=== PATIENT | female | born 1965 | race Caucasian/White ===

== ENCOUNTER 2021-12-23 11:27 | Outpatient (REF) | payer OTHER, SELFPAY ==
[2021-12-23 12:36] LABS: Creatinine Urine 166.16 mg/dL; Microalbum/Creatinine Ratio Ur 63.1 ug/mg cr
== END 2021-12-23 11:28 | disposition home or self-care (01) ==
LOC: HO.LNP 11:27
PROVIDERS: Visit Provider Hospitalist
DX: E11.65 Type 2 diabetes mellitus with hyperglycemia (principal)
CPT/HCPCS: 82043

== ENCOUNTER 2021-12-24 10:58 | Outpatient (REF) | payer OTHER, SELFPAY ==
[2021-12-24 14:07] LABS: Hematocrit 44.6 % (37.0-47.0); Hemoglobin 15.2 g/dl (12.0-16.0); Mean Corpuscular HGB Conc 34.1 g/dl (31.0-35.0); Mean Corpuscular Hemoglobin 30.5 pg (27.0-33.0); Mean Corpuscular Volume 89.4 fL (80.0-98.0); Mean Platelet Volume 11.8 fL (9.4-12.3); Platelet Count 194 X10*3/uL (160-400); Red Blood Count 4.99 X10*6/uL (4.20-5.50); Red Cell Distribution Width 12.7 % (11.0-16.0); White Blood Count 5.4 X10*3/uL (4.8-10.8)
[2021-12-24 14:18] LABS: Alanine Aminotransferase 60 U/L (0-31); Albumin Level 4.1 g/dL (3.5-5.0); Alkaline Phosphatase 82 U/L (39-117); Anion Gap 14 (12-20); Aspartate Amino Transferase 35 U/L (5-31); Bilirubin Total 1.2 mg/dL (0.0-1.0); Blood Urea Nitrogen 19 mg/dL (9-16); Calcium 9.1 mg/dL (8.4-10.2); Carbon Dioxide 27 mmol/L (22-29); Chloride 98 mmol/L (96-108); Cholesterol 245 mg/dL; Estimated Glomerular Filt Rate > 60; Glucose Fasting 327 mg/dL (60-99); HDL Cholesterol 39 mg/dL; LDL Cholesterol Calculated 160 mg/dl; Potassium 4.3 mmol/L (3.3-5.1); Sodium 135 mmol/L (135-145); Total Protein 6.7 g/dL (6.5-8.0); Triglycerides 230 mg/dL
[2021-12-24 14:40] LABS: TSH reflex Free T4 1.25 uIU/mL (0.32-4.0)
== END 2021-12-24 10:59 | disposition home or self-care (01) ==
LOC: HO.HMGCLDS 10:58
PROVIDERS: PCP Hospitalist; Visit Provider Hospitalist
DX: I10 Essential (primary) hypertension (principal); E11.65 Type 2 diabetes mellitus with hyperglycemia
CPT/HCPCS: 36415; 80053; 80061; 84443; 85027

== ENCOUNTER → 2022-01-19 10:01 | Outpatient (BNVA) | payer OTHER, SELFPAY | PROVIDERS: PCP Hospitalist; Visit Provider Registered Nurse Diabetes Educator | DX: E11.65 Type 2 diabetes mellitus with hyperglycemia (principal) | CPT/HCPCS: 99211 ==

== ENCOUNTER → 2022-02-19 14:28 | Outpatient (BNVA) | payer OTHER, SELFPAY | PROVIDERS: PCP Hospitalist; Visit Provider Registered Nurse Diabetes Educator | DX: E11.65 Type 2 diabetes mellitus with hyperglycemia (principal) | CPT/HCPCS: 99211 ==

== ENCOUNTER 2023-06-15 15:19 | Outpatient (AMB) | payer OTHER, SELFPAY ==
[2023-06-15 15:31] VITALS: BP 132/66; PULSE 108; RESP 13; O2SAT 98; BMI 32.8
--- NOTE | 2023-06-15 15:31 | MHC.PC.OV ---
Vital Signs 06/15/23 15:31 Height 5 ft 7 in Weight 209 lb 6 oz BMI 32.8 BP 132/66 Blood Pressure Location Lt brachial Position Sitting Respiration 13 Pulse 108 H Pulse Source Pulse Oximeter Pulse Oximetry (%) 98 Oxygen Delivery Method Room Air Intake Visit Reasons: LIBRADO from [facility] Intake Note: Patient is here for transfer of care. Patient would like to discuss depression. Survey Chief Required: No Accompanied by: Self / Same As Patient Allergies No Known Allergies Allergy (Verified 06/15/23 15:58) Medication List - Last Reconciled 06/15/23 by Roxanne Beckett [facility] blood sugar diagnostic ([employer] Ver[employer] test strips) As directed blood sugar daily and daily prn metformin ER 1,500 mg (2 x 750 mg) PO QPM 3 months sertraline 75 mg (1.5 x 50 mg) PO DAILY Tobacco use date assessed: 06/15/23 Dental Screening Dental Screen Date: 06/15/23 Did you have a dental visit in the last 12 months?: No Did you have a dental problem in the last 6 months where you did not have access to dental care?: No Was dental information given to patient?: Patient declined HPI HPI Comments History of Present Illness Details Jada 58-year-old female MDD, obesity, hypertension, diabetes type 2, microalbuminuria, elevated LFTs, hyperlipidemia, Herpes Health maintenance Colonoscopy 2017 Mammogram 11/07/2021 within normal limits Pap DEXA Diabetic eye exam Last set of labs 12/24/2021 practice representative recommended GLP 1 in the past never started Glucagon-like, peptide-1 (GLP-1) agonist or incretin mimetic: dulaglutide (Trulicity) exenatide (Byetta?[US]) and exenatide extended release (Bydureon BCise?[US]) liraglutide (Victoza;?with insulin degludec [Xultophy]) lixisenatide (Adlyxin?[US];?Adlyxine?[Brandi]; with insulin glargine [Soliqua]) semaglutide (Ozempic,?Rybelsus) Here today to est care. Admits to falling out of care generally speaking. MDD - was on sertraline while in the [facility]. On 75mg currently. Takes at HS. Struggling to get OOB, calling out of work. Low motivation. Not active w/ counselor. Was in past. + MARIANA. Passively suicidal. Grandchildren and Children are her reason to live. DM2: admits noncompliance. Admits poor diet. HgA1c 12.9% done in office today Hypertension not currently on any medications Microalbuminuria last urine done in 2021 Hyperlipidemia not yet on a statin Diabetic eye exam overdue. We will need a referral however we will place a future visit as the overwhelm her. [facility] Medical History (Updated 06/15/23 @ 16:37 by Roxanne Beckett, [facility]) No pertinent past medical history Surgical History (Updated 06/15/23 @ 15:48 by Tatianna Jang [facility]) No pertinent past surgical history Social History (Updated 06/15/23 @ 15:46 by Tatianna Jang [facility]) Household Members: Other Both parents involved: No Caregiver staying overnight: No Housing: Apartment Are you a primary health and social care teacher to a significant other at home: No Do you presently have visiting nurse or other home services: No 75 years or older and lives alone: No Alcohol intake: never Patient Tobacco Use Status: Never used Tobacco e-Cigarette/Vaping Use: Never Used Second Hand Smoke Exposure: No service: No Current occupational status: unemployed Current occupational exposures/hazards: No Sexual orientation: Unable to collect Gender identity: Unable to collect Cognitive needs: No Hearing needs: No Vision needs: Yes Questionnaire PHQ-9 Over the last 2 weeks, how often have you been bothered by any of the following problems? 1. Little interest or pleasure in doing things: more than half the days 2. Feeling down, depressed, or hopeless: not at all 3. Trouble falling or staying asleep, or sleeping too much: nearly every day 4. Feeling tired or having little energy: nearly every day 5. Poor appetite or overeating: not at all 6. Feeling bad about yourself - or that you are a failure or have let yourself or your family down: not at all 7. Trouble concentrating on things, such as reading the newspaper or watching television: not at all 8. Moving or speaking so slowly that other people could have noticed. Or the opposite - being so fidgety or restless that you have been moving around a lot more than usual: not at all 9. Thoughts that you would be better off or of hurting yourself in some way: not at all Total score: 8 Depression Screening Interpretation: Positive Depression Screening Follow-up: Existing condition and In treatment Depression Screening Done: Yes 17845 - PHQ-9 Billing: Yes Source: Developed by Drs. David Boykin, Nita Romero, Nicholas Schneider and colleagues, with an educational kim from [employer]. Thrive Questionnaire Date Thrive assessed: 06/15/23 I am a: Patient What is your living situation today?: I have a steady place to live Within the past 12 months, did the food you bought not last and you didn't have the money to get more?: Never true Within the past 12 months, did you worry whether your food would run out before you got money to buy more?: Never true Do you have trouble paying for medicines?: No Do you have trouble getting transportation to medical appointments?: No Do you have trouble paying your heating and electricity bill?: No Do you have trouble taking care of your child, family member or friend?: No Do you have trouble with day-to-day activities such as bathing, preparing meals, shopping, managing finances, etc.?: No Are you currently unemployed and looking for a job?: No Are you interested in more education?: No Please select the resources that you would like help with: None Currently or been in a relationship where the following occur: no concerns reported THRIVE Score: 0 AUDIT C Alcohol Use Questionnaire (AUDIT-C) 1. How often do you have a drink containing alcohol?: Never 2. How many drinks containing alcohol do you have on a typical day when you are drinking?: 1 or 2 3. How often do you have six or more drinks on one occasion?: Never Total Score: 0 Score Reviewed/Action Taken: Yes MARIANA-7 AMB Questionnaire MARIANA-7 Date MARIANA - 7 assessed: 06/15/23 Feeling nervous, anxious, or on edge: 0 = Not at all Not being able to stop or control worryin = Several days Worrying too much about different things: 1 = Several days Trouble relaxin = Not at all Being so restless that it is hard to sit still: 1 = Several days Becoming easily annoyed or irritable: 3 = Nearly every day Feeling afraid as if something awful might happen: 0 = Not at all Total MARIANA-7 score (0-4 normal; 5-9 mild; 10-14 moderate; 15-21 severe): 6 Source: Developed by Drs. David Boykin, Nita Romero, Nicholas Schneider and colleagues, with an educational kim from [employer]. MARIANA-7 Assessment Billing MARIANA-7 Assessment Tool: MARIANA-7 Assessment 73432 Review of Systems Const All systems reviewed & are unremarkable except as noted in HPI and below Physical exam (Primary Care) Vital Signs: Last Vital Signs Pulse 108 H 06/15/23 15:31 Resp 13 06/15/23 15:31 BP 132/66 06/15/23 15:31 Pulse Ox 98 06/15/23 15:31 Oxygen Delivery Method Room Air 06/15/23 15:31 BMI result Body Mass Index 32.8 BMI Assessment/Plan discussion: High BMI High, discussed plan: lifestyle and physical activity Tobacco/Smoking Status: Tobacco use Status Tobacco use date assessed 06/15/23 06/15/23 15:47 Patient Tobacco Use Status Never used Tobacco 06/15/23 15:46 e-Cigarette/Vaping Use Never Used 06/15/23 15:46 PHQ-9: PHQ-9 Score PHQ-9: Total score 8 06/15/23 15:47 Depression Screening Interpretation: Positive Depression Screening Follow-up: Existing condition and In treatment Thrive Assessment: Date of Thrive Assessment Date Thrive assessed 06/15/23 06/15/23 15:47 Currently or been in a relationship where the following occur: no concerns reported Const Other: Awake alert oriented pleasant Sclera is nonicteric bilat Mucous membranes moist No carotid bruit bilat Tachycardic regular rhythm Lung sounds clear to auscultation bilat, dim throughout Abdomen soft, obese, positive hepatomegaly, liver edge palpable No edema bilateral lower extremities, decreased pedal pulses bilat, abnormal monofilament testing bilat, abnormal vibratory sensation bilat, skin thickened callused to feet bilat, right great toenail positive on onychomycosis Mood and affect appropriate Results AMB Hemoglobin A1c AMB Hemoglobin A1c 12.9 % Last Edit by Tatianna Jang CMA on 06/15/23 15:51 Assessment and Plan Assessment & Plan (1) Diabetes mellitus type 2 with complications: Comment: HGB A1c 12.9% today The plan will be to get updated labs and adjust her treatments as necessary. At this time continue metformin ER 1500 mg in the evening Code(s): E11.8 - Type 2 diabetes mellitus with unspecified complications (2) Microalbuminuria due to type 2 diabetes mellitus: Comment: We will obtain updated microalbumin. Code(s): E11.29 - Type 2 diabetes mellitus with other diabetic kidney complication; R80.9 - Proteinuria, unspecified (3) Type 2 diabetes mellitus with morbid obesity: Comment: BMI 32.8, lifestyle modifications recommended Code(s): E11.69 - Type 2 diabetes mellitus with other specified complication; E66.01 - Morbid (severe) obesity due to excess calories (4) MDD (major depressive disorder), recurrent episode: Comment: Currently managed on sertraline 75 mg daily. Has been on this medication for several years. The plan will be to update labs and adjust medications to improve her depressive symptoms. Offered and declined counseling Code(s): F33.9 - Major depressive disorder, recurrent, unspecified Qualifiers: Major depression episode severity: moderate Qualified Code(s): F33.1 - Major depressive disorder, recurrent, moderate (5) Hyperlipidemia associated with type 2 diabetes mellitus: Comment: Ordered updated labs. We will review and start statin as appropriate if patient is agreeable Code(s): E11.69 - Type 2 diabetes mellitus with other specified complication; E78.5 - Hyperlipidemia, unspecified (6) Hypertension complicating diabetes: Comment: Not currently on any agents. We will discuss at future visits Code(s): E11.59 - Type 2 diabetes mellitus with other circulatory complications; I15.2 - Hypertension secondary to endocrine disorders (7) Neuropathy due to type 2 diabetes mellitus: Comment: Abnormal monofilament and vibratory sensations bilat noted today on exam. Diabetic foot exam performed. We will prescribe Lac-Hydrin cream b.i.d. to help with the thickened scaling skin. Diabetic foot education provided Code(s): E11.40 - Type 2 diabetes mellitus with diabetic neuropathy, unspecified (8) Diabetes type 2 with atherosclerosis of arteries of extremities: Comment: Based on physical exam. Lipid panel ordered. Monitor skin integrity Code(s): E11.51 - Type 2 diabetes mellitus with diabetic peripheral angiopathy without gangrene; I70.209 - Unspecified atherosclerosis of [place] arteries of extremities, unspecified extremity Plan This note is constructed using voice recognition software. While every effort has been made to ensure accuracy in director of trauma, still errors may have been included Sometimes, these errors may affect the content or meaning of the given sentence . Total time spent caring for the patient today was 60 minutes. This includes time spent before the visit reviewing the chart, time spent during the visit, and time spent after the visit on documentation Orders: Orders Comprehensive [place]. Panel Fast Today B00.9 - Herpesviral infection, unspecified, E11.29 - Type 2 diabetes mellitus with other diabetic kidney complication, E11.59 - Type 2 diabetes mellitus with other circulatory complications, E11.69 - Type 2 diabetes mellitus with other specified complication, E11.8 - Type 2 diabetes mellitus with unspecified complications, E66.01 - Morbid (severe) obesity due to excess calories, E78.5 - Hyperlipidemia, unspecified, F33.9 - Major depressive disorder, recurrent, unspecified, I15.2 - Hypertension secondary to endocrine disorders, R80.9 - Proteinuria, unspecified Microalbumin, Random (w Creat) Today B00.9 - Herpesviral infection, unspecified, E11.29 - Type 2 diabetes mellitus with other diabetic kidney complication, E11.59 - Type 2 diabetes mellitus with other circulatory complications, E11.69 - Type 2 diabetes mellitus with other specified complication, E11.8 - Type 2 diabetes mellitus with unspecified complications, E66.01 - Morbid (severe) obesity due to excess calories, E78.5 - Hyperlipidemia, unspecified, F33.9 - Major depressive disorder, recurrent, unspecified, I15.2 - Hypertension secondary to endocrine disorders, R80.9 - Proteinuria, unspecified AMB Diabetic Foot Exam Today E11.8 - Type 2 diabetes mellitus with unspecified complications AMB Hemoglobin A1c Today E11.9 - Type 2 diabetes mellitus without complications TSH reflex Free T4 Today B00.9 - Herpesviral infection, unspecified, E11.29 - Type 2 diabetes mellitus with other diabetic kidney complication, E11.59 - Type 2 diabetes mellitus with other circulatory complications, E11.69 - Type 2 diabetes mellitus with other specified complication, E11.8 - Type 2 diabetes mellitus with unspecified complications, E66.01 - Morbid (severe) obesity due to excess calories, E78.5 - Hyperlipidemia, unspecified, F33.9 - Major depressive disorder, recurrent, unspecified, I15.2 - Hypertension secondary to endocrine disorders, R80.9 - Proteinuria, unspecified Vitamin D 1,25 dihydroxy Today B00.9 - Herpesviral infection, unspecified, E11.29 - Type 2 diabetes mellitus with other diabetic kidney complication, E11.59 - Type 2 diabetes mellitus with other circulatory complications, E11.69 - Type 2 diabetes mellitus with other specified complication, E11.8 - Type 2 diabetes mellitus with unspecified complications, E66.01 - Morbid (severe) obesity due to excess calories, E78.5 - Hyperlipidemia, unspecified, F33.9 - Major depressive disorder, recurrent, unspecified, I15.2 - Hypertension secondary to endocrine disorders, R80.9 - Proteinuria, unspecified Lipid Panel Today B00.9 - Herpesviral infection, unspecified, E11.29 - Type 2 diabetes mellitus with other diabetic kidney complication, E11.59 - Type 2 diabetes mellitus with other circulatory complications, E11.69 - Type 2 diabetes mellitus with other specified complication, E11.8 - Type 2 diabetes mellitus with unspecified complications, E66.01 - Morbid (severe) obesity due to excess calories, E78.5 - Hyperlipidemia, unspecified, F33.9 - Major depressive disorder, recurrent, unspecified, I15.2 - Hypertension secondary to endocrine disorders, R80.9 - Proteinuria, unspecified Vitamin B12 and Folate Today B00.9 - Herpesviral infection, unspecified, E11.29 - Type 2 diabetes mellitus with other diabetic kidney complication, E11.59 - Type 2 diabetes mellitus with other circulatory complications, E11.69 - Type 2 diabetes mellitus with other specified complication, E11.8 - Type 2 diabetes mellitus with unspecified complications, E66.01 - Morbid (severe) obesity due to excess calories, E78.5 - Hyperlipidemia, unspecified, F33.9 - Major depressive disorder, recurrent, unspecified, I15.2 - Hypertension secondary to endocrine disorders, R80.9 - Proteinuria, unspecified Medications: New ammonium lactate 12% 1 appl topical BID 385 grams 5RF Coding Level of Care Code Est Pt Level 5 (19383) Diagnoses Diabetes mellitus type 2 with complications E11.8 Microalbuminuria due to type 2 diabetes mellitus E11.29; R80.9 Type 2 diabetes mellitus with morbid obesity E11.69; E66.01 Moderate episode of recurrent major depressive disorder F33.1 Major depression episode severity: moderate Hyperlipidemia associated with type 2 diabetes mellitus E11.69; E78.5 Hypertension complicating diabetes E11.59; I15.2 Neuropathy due to type 2 diabetes mellitus E11.40 Diabetes type 2 with atherosclerosis of arteries of extremities E11.51; I70.209 Additional Codes MARIANA-7 Assessment Billing - MARIANA-7 Assessment Tool: MARIANA-7 Assessment [id number] ([id number])
== END 2023-06-15 16:41 | disposition home or self-care (01) ==
PROVIDERS: PCP Nurse Practitioner Family; Visit Provider Nurse Practitioner Family
DX: E11.9 Type 2 diabetes mellitus without complications (principal)
CPT/HCPCS: 83036; 99215

== ENCOUNTER 2023-06-19 07:02 | Outpatient (REF) | payer OTHER, SELFPAY ==
[2023-06-19 11:40] LABS: Microalbum/Creatinine Ratio Ur 271.1 ug/mg cr (<30)
[2023-06-19 11:42] LABS: Alanine Aminotransferase 42 U/L (0-31); Albumin Level 4.3 g/dL (3.5-5.0); Alkaline Phosphatase 77 U/L (39-117); Anion Gap 14 (12-20); Aspartate Amino Transferase 31 U/L (5-31); Bilirubin Total 0.7 mg/dL (0.0-1.0); Blood Urea Nitrogen 16 mg/dL (9-16); Calcium 10.8 mg/dL (8.4-10.2); Carbon Dioxide 29 mmol/L (22-29); Chloride 96 mmol/L (96-108); Cholesterol 220 mg/dL (<200); Estimated Glomerular Filt Rate > 60; Glucose Fasting 335 mg/dL (60-99); HDL Cholesterol 48 mg/dL (>40); LDL Cholesterol Calculated 135 mg/dL (<100); Potassium 4.1 mmol/L (3.3-5.1); Sodium 135 mmol/L (135-145); Total Protein 7.2 g/dL (6.5-8.0); Triglycerides 189 mg/dL (<150)
[2023-06-19 11:56] LABS: Folate 10.4 ng/mL (> or = 4.0); Vitamin B12 891 pg/mL (200-900)
[2023-06-23 13:04] LABS: VITAMIN D (1,25 OH) D3 54 pg/mL; Vit D (1,25-Dihydroxy) Total 54 pg/mL (18-72); Vitamin D (1,25 OH) D2 <8 pg/mL
== END 2023-06-19 07:03 | disposition home or self-care (01) ==
LOC: HO.HMGCLDS 07:02
PROVIDERS: PCP Nurse Practitioner Family; Visit Provider Nurse Practitioner Family
DX: B00.9 Herpesviral infection, unspecified (principal); E11.29 Type 2 diabetes mellitus with other diabetic kidney complication; R80.9 Proteinuria, unspecified; E11.69 Type 2 diabetes mellitus with other specified complication; E66.01 Morbid (severe) obesity due to excess calories; F33.9 Major depressive disorder, recurrent, unspecified; E78.5 Hyperlipidemia, unspecified; E11.59 Type 2 diabetes mellitus with other circulatory complications; I15.2 Hypertension secondary to endocrine disorders
CPT/HCPCS: 36415; 80053; 80061; 82043; 82570; 82607; 82652; 82746; 84443

== ENCOUNTER 2023-09-11 07:10 | Outpatient (REF) | payer OTHER, SELFPAY ==
[2023-09-11 11:57] LABS: Alanine Aminotransferase 32 U/L (0-31); Albumin Level 4.3 g/dL (3.5-5.0); Alkaline Phosphatase 61 U/L (39-117); Anion Gap 15 (12-20); Aspartate Amino Transferase 28 U/L (5-31); Bilirubin Total 0.9 mg/dL (0.0-1.0); Blood Urea Nitrogen 18 mg/dL (9-16); Calcium 9.7 mg/dL (8.4-10.2); Carbon Dioxide 27 mmol/L (22-29); Chloride 102 mmol/L (96-108); Cholesterol 170 mg/dL (<200); Estimated Glomerular Filt Rate > 60; Glucose Fasting 185 mg/dL (60-99); HDL Cholesterol 52 mg/dL (>40); LDL Cholesterol Calculated 87 mg/dL (<100); Potassium 4.1 mmol/L (3.3-5.1); Sodium 140 mmol/L (135-145); Triglycerides 158 mg/dL (<150)
[2023-09-11 12:02] LABS: Creatinine Urine 51.33 mg/dL; Microalbum/Creatinine Ratio Ur 21.4 ug/mg cr (<30)
== END 2023-09-11 07:11 | disposition home or self-care (01) ==
LOC: HO.HMGCLDS 07:10
PROVIDERS: PCP Nurse Practitioner Family; Visit Provider Nurse Practitioner Family
DX: E11.29 Type 2 diabetes mellitus with other diabetic kidney complication (principal); E11.69 Type 2 diabetes mellitus with other specified complication; R80.9 Proteinuria, unspecified; E78.5 Hyperlipidemia, unspecified
CPT/HCPCS: 36415; 80053; 80061; 82043; 82570

== ENCOUNTER 2023-09-14 15:34 | Outpatient (AMB) | payer OTHER, SELFPAY ==
--- NOTE | 2023-09-14 15:37 | A.OFFPC_ITS ---
Vital Signs 09/14/23 15:43 Height 5 ft 7 in Weight 204 lb BMI 31.9 BP 136/78 Blood Pressure Location Rt brachial Position Sitting Pulse 84 Pulse Source Pulse Oximeter Pulse Oximetry (%) 98 Oxygen Delivery Method Room Air Intake Visit Reasons: f/u 45 min DM complex Allergies No Known Allergies Allergy (Verified 09/14/23 15:45) Medication List - Last Reconciled 09/14/23 by Roxanne Beckett, STUD MASTER/MISTRESS-BC ammonium lactate 12% 1 appl topical BID blood sugar diagnostic (Pact [employer] Verio test strips) As directed blood sugar daily and daily prn empagliflozin (Jardiance) 25 mg PO QAM metformin ER 1,500 mg (2 x 750 mg) PO QPM pravastatin 20 mg PO BEDTIME sertraline 75 mg (1.5 x 50 mg) PO DAILY Tobacco use date assessed: 06/15/23 Dental Screening Dental Screen Date: 06/15/23 HPI HPI Comments History of Present Illness Details 58-year-old female MDD, obesity, hyperte nsion, diabetes type 2, microalbuminuria, elevated LFTs, hyperlipidemia, Herpes Health maintenance Colonoscopy 2017 Mammogram 11/07/2021 within normal limits Pap DEXA Diabetic eye exam referred to [facility] Here today for routine follow-up of chronic conditions Labs from June 19 show normal electrolytes, normal BUN creatinine GFR, mildly elevated ALT 42, elevated triglycerides 189, cholesterol 220, LDL 135, HDL 48, normal B12, normal vitamin-D, normal thyroid, elevated microalbumin and microalbumin creatinine ratio. Urinary microalbumin is 215, ratio was 271.1 09/11/2023 normal electrolytes, renal fun ction, fasting glucose 185, improvement in ALT 32 (was 42), improvement and lipid profile total cholesterol went from 220 down to 170, triglycerides 189 down to 158, LDL 135 down to 87, HDL 48 up to 52, marked improvement in her urine microalbumin and creatinine ratio, ratio was 271.1 and it is now 21.4 Taking sertraline 100mg instead of 75mg over the last 2 weeks d/t increase in depressive sx. Feels better on this dose. Does not think she needs counseling at this time. Low energy. Hard time focusing. Low motivation. Using lachydrin as directed, occasional missed doses. Taking statin as directed, w/o side effects Wt down 5 lbs, no change in eating habits DM - no urogyn complaints. HgA1c 8.9% (was 12.9% 05/2023) taking all medications as directed. Plan: Increase metformin from 50 100 mg daily to 2000 mg daily. Continue Jardiance with the same dose. Add Wellbutrin XL 150 mg p.o. q.a.m. to the sertraline 100 mg p.o. daily. Refer for diabetic eye exam. Refer to podiatry for evaluation and treated with a corn on the left foot Return to office in 3-4 months with repeat labs [facility] Medical History (Updated 09/14/23 @ 17:16 by Roxanne Beckett [facility]) No pertinent past medical history Surgical History (Updated 06/15/23 @ 15:48 by Tatianna Jang [facility]) No pertinent past surgical history Social History (Updated 06/15/23 @ 15:46 by Tatianna Jang CMA) Household Members: Other Both parents involved: No Caregiver staying overnight: No Housing: Apartment Are you a primary administrator health care facility to a significant other at home: No Do you presently have visiting nurse or other home services: No 75 years or older and lives alone: No Alcohol intake: never Patient Tobacco Use Status: Never used Tobacco e-Cigarette/Vaping Use: Never Used Second Hand Smoke Exposure: No service: No Current occupational status: unemployed Current occupational exposures/hazards: No Sexual orientation: Unable to collect Gender identity: Unable to collect Cognitive needs: No Hearing needs: No Vision needs: Yes Questionnaire Thrive Questionnaire Date Thrive assessed: 06/15/23 MARIANA-7 AMB Questionnaire MARIANA-7 Date MARIANA - 7 assessed: 06/15/23 Source: Developed by Drs. David Boykin, Nita Romero, Nicholas Schneider and colleagues, with an educational kim from [employer]. Review of Systems Const All systems reviewed & are unremarkable except as noted in HPI and below Physical exam (Primary Care) BMI Assessment/Plan discussion: High BMI High, discussed plan: lifestyle and physical activity Tobacco/Smoking Status: Tobacco use Status Tobacco use date assessed 06/15/23 06/25/23 13:46 Patient Tobacco Use Status Never used Tobacco 06/25/23 13:46 e-Cigarette/Vaping Use Never Used 06/25/23 13:46 Thrive Assessment: Date of Thrive Assessment Date Thrive assessed 06/15/23 06/25/23 13:46 Const Other: Awake alert oriented pleasant Sclera is nonicteric bilat Mucous membranes moist RRR Lung sounds clear to auscultation bilat, dim throughout Abdomen soft, obese, positive hepatomegaly, liver edge palpable No edema bilateral lower extremities, decreased pedal pulses bilat, abnormal monofilament testing bilat, abnormal vibratory sensation bilat, skin thickened callused to feet bilat, right great toenail positive on onychomycosis, left 3rd toe positive corn, fragile skin that is intact on of left 4th toe due to pressure from the corn Mood and affect appropriate Results AMB Hemoglobin A1c AMB Hemoglobin A1c 8.9 % Last Edit by DARYL Bran on 09/14/23 16:0 4 Assessment and Plan Assessment & Plan (1) Diabetes type 2 with atherosclerosis of arteries of extremities: Comment: Based on physical exam. On statin. Monitor skin integrity Encouraged use of Lac-Hydrin Refer to podiatry Code(s): E11.51 - Type 2 diabetes mellitus with diabetic peripheral angiopathy without ga ngrene; I70.209 - Unspecified atherosclerosis of [place] arteries of extremities, unspecified extremity (2) Neuropathy due to type 2 diabetes mellitus: Comment: Abnormal monofilament and vibratory sensations bilat Noted a corn to the left 3rd toe which needs to be addressed this is causing pressure to the abutting toe. She has been referred to Podiatry for evaluation and treatment. Continue Lac-Hydrin cream b.i.d. to help with the thickened scaling skin. Diabetic foot education provided Code(s): E11.40 - Type 2 diabetes mellitus with diabetic neuropathy, unspecified (3) Microalbuminuria due to type 2 diabetes mellitus: Comment: Greatly improved with the use of Jardiance, continue repeat this in 3 months Code(s): E11.29 - Type 2 diabetes mellitus with other diabetic kidney complication; R80.9 - Proteinuria, unspecified (4) Type 2 diabetes mellitus with morbid obesity: Comment: BMI 32.0 lifestyle modifications recommended Code(s): E11.69 - Type 2 diabetes mellitus with other specified complication; E66.01 - Morbid (severe) obesity due to excess calories (5) MDD (major depressive disorder), recurrent episode: Comment: Self increase sertraline from 75 mg to 100 mg daily. [place] a positive effect. However continues to have some symptoms. The plan will be to add Wellbutrin XL 150 mg p.o. daily to her sertraline. Offered and declined counseling Code(s): F33.9 - Major depressive disorder, recurrent, unspecified Qualifiers: Major depression episode severity: moderate Qualified Code(s): F33.1 - Major depressive disorder, recurrent, moderate (6) Hyperlipidemia associated with type 2 diabetes mellitus: Comment: LDL goal is less than 70 Near goal on pravastatin 20 mg p.o. q.h.s. cont and repeat labs in 3 months Code(s): E11.69 - Type 2 diabetes mellitus with other specified complication; E78.5 - Hyperlipidemia, unspecified (7) Hypertension complicating diabetes: Comment: blood pressure stable without medications at this time we will continue to monitor Code(s): E11.59 - Type 2 diabetes mellitus with other circulatory complications; I15.2 - Hypertension secondary to endocrine disorders (8) Diabetes mellitus type 2 with complications: Comment: HGB A1c 8.9% Increase metformin ER 2000 mg q.h.s. and continue Jardiance 25 mg p.o. q.a.m. Refer for diabetic eye exam We will repeat A1c in 3 months Code(s): E11.8 - Type 2 diabetes mellitus with unspecified complications Plan This note is constructed using voice recognition software. While every effort has been made to ensure accuracy in customs and border protection inspector, still errors may have been included Sometimes, these errors may affect the content or meaning of the given sentence . Total time spent caring for the patient today was 50 minutes. This includes time spent before the visit reviewing the chart, time spent during the visit, and time spent after the visit on documentation Orders: Orders AMB Hemoglobin A1c Today E11.51 - Type 2 diabetes mellitus with diabetic peripheral angiopathy without gangrene, E11.8 - Type 2 diabetes mellitus with unspecified complications, I70.209 - Unspecified atherosclerosis of [place] arteries of extremities, unspecified extremity Hemoglobin A1c 11/25/23 E11.29 - Type 2 diabetes mellitus with other diabetic kidney complication, E11.51 - Type 2 diabetes mellitus with diabetic peripheral angiopathy without gangrene, E11.59 - Type 2 diabetes mellitus with other circulatory complications, E11.69 - Type 2 diabetes mellitus with other specified complication, E11.8 - Type 2 diabetes mellitus with unspecified complications, E66.01 - Morbid (severe) obesity due to excess calories, E78.5 - Hyperlipidemia, unspecified, I15.2 - Hypertension secondary to endocrine disorders, I70.209 - Unspecified atherosclerosis of [place] arteries of extremities, unspecified extremity, R80.9 - Proteinuria, unspecified Comprehensive [place]. Panel Fast 11/25/23 E11.29 - Type 2 diabetes mellitus with other diabetic kidney complication, E11.51 - Type 2 diabetes mellitus with diabetic peripheral angiopathy without gangrene, E11.59 - Type 2 diabetes mellitus with other circulatory complications, E11.69 - Type 2 diabetes mellitus with other specified complication, E11.8 - Type 2 diabetes mellitus with unspecified complications, E66.01 - Morbid (severe) obesity due to excess calories, E78.5 - Hyperlipidemia, unspecified, I15.2 - Hypertension secondary to endocrine disorders, I70.209 - Unspecified atherosclerosis of [place] arteries of extremities, unspecified extremity, R80.9 - Proteinuria, unspecified Lipid Panel 11/25/23 E11.29 - Type 2 diabetes mellitus with other diabetic k [place] complication, E11.51 - Type 2 diabetes mellitus with diabetic peripheral angiopathy without gangrene, E11.59 - Type 2 diabetes mellitus with other circulatory complications, E11.69 - Type 2 diabetes mellitus with other specified complication, E11.8 - Type 2 diabetes mellitus with unspecified complications, E66.01 - Morbid (severe) obesity due to excess calories, E78.5 - Hyperlipidemia, unspecified, I15.2 - Hypertension secondary to endocrine disorders, I70.209 - Unspecified atherosclerosis of [place] arteries of extremities, unspecified extremity, R80.9 - Proteinuria, unspecified Microalbumin, Random (w Creat) 11/25/23 E11.29 - Type 2 diabetes mellitus with other diabetic kidney complication, E11.51 - Type 2 diabetes mellitus with diabetic peripheral angiopathy without gangrene, E11.59 - Type 2 diabetes mellitus with other circulatory complications, E11.69 - Type 2 diabetes mellitus with other specified complication, E11.8 - Type 2 diabetes mellitus with unspecified complications, E66.01 - Morbid (severe) obesity due to excess calories, E78.5 - Hyperlipidemia, unspecified, I15.2 - Hypertension secondary to endocrine disorders, I70.209 - Unspecified atherosclerosis of [place] arteries of extremities, unspecified extremity, R80.9 - Proteinuria, unspecified Vitamin B12 11/25/23 E11.29 - Type 2 diabetes mellitus with other diabetic kidney complication, E11.51 - Type 2 diabetes mellitus with diabetic peripheral angiopathy without gangrene, E11.59 - Type 2 diabetes mellitus with other circulatory complications, E11.69 - Type 2 diabetes mellitus with other specified complication, E11.8 - Type 2 diabetes mellitus with unspecified complications, E66.01 - Morbid (severe) obesity due to excess calories, E78.5 - Hyperlipidemia, unspecified, I15.2 - Hypertension secondary to endocrine disorders, I70.209 - Unspecified atherosclerosis of [place] arteries of extremities, unspecified extremity, R80.9 - Proteinuria, unspecified Referrals Ophthalmology Referral E11.8 - Type 2 diabetes mellitus with unspecified complications Podiatry Referral E11.40 - Type 2 diabetes mellitus with diabetic neuropathy, unspecified, L84 - Corns and callosities Medications: New sertraline 100 mg PO DAILY 90 tabs 1RF metformin ER 2,000 mg (2 x 1,000 mg) PO QPM 180 tabs 1RF bupropion HCl XL (Wellbutrin XL) 150 mg PO QAM 90 tabs 0RF Refilled pravastatin 20 mg PO BEDTIME 90 tabs 1RF empagliflozin (Jardiance) 25 mg PO QAM 90 tabs 1RF Discontinued sertraline Discontinued Reason: Doctor's Order 75 mg (1.5 x 50 mg) PO DAILY 135 tabs 3RF F32.9 - Major depressive disorder, single episode, unspecified metformin ER Discontinued Reason: Doctor's Order 1,500 mg (2 x 750 mg) PO QPM 180 tabs 0RF E11.65 - Type 2 diabetes mellitus with hyperglycemia Patient Instructions: Return to the office in 3-4 months with repeat labs done 1 week before. Make a diabetic eye exam as well as a Podiatry exam return to the office sooner if needed. Coding Level of Care Code Est Pt Level 5 (22683) Complex EM visit Add On G2211 Diagnoses Diabetes type 2 with atherosclerosis of arteries of extremities E11.51; I70.209 Neuropathy due to type 2 diabetes mellitus E11.40 Microalbuminuria due to type 2 diabetes mellitus E11.29; R80.9 Type 2 diabetes mellitus with morbid obesity E11.69; E66.01 Moderate episode of recurrent major depressive disorder F33.1 Major depression episode severity: moderate Hyperlipidemia associated with type 2 diabetes mellitus E11.69; E78.5 Hypertension complicating diabetes E11.59; I15.2 Diabetes mellitus type 2 with complications E11.8
[2023-09-14 15:43] VITALS: BP 136/78; PULSE 84; O2SAT 98; BMI 31.9
== END 2023-09-14 16:32 | disposition home or self-care (01) ==
PROVIDERS: PCP Nurse Practitioner Family; Visit Provider Nurse Practitioner Family
DX: E11.51 Type 2 diabetes mellitus with diabetic peripheral angiopathy without gangrene (principal); I70.209 Unspecified atherosclerosis of native arteries of extremities, unspecified extremity; E11.40 Type 2 diabetes mellitus with diabetic neuropathy, unspecified; E11.29 Type 2 diabetes mellitus with other diabetic kidney complication; E11.69 Type 2 diabetes mellitus with other specified complication; E66.01 Morbid (severe) obesity due to excess calories; E11.59 Type 2 diabetes mellitus with other circulatory complications; F33.1 Major depressive disorder, recurrent, moderate; R80.9 Proteinuria, unspecified; E78.5 Hyperlipidemia, unspecified; I15.2 Hypertension secondary to endocrine disorders
CPT/HCPCS: 83036; 99215; G2211

== ENCOUNTER 2023-12-21 07:38 | Outpatient (REF) | payer OTHER, SELFPAY ==
[2023-12-21 11:06] LABS: Alanine Aminotransferase 42 U/L (0-31); Albumin Level 4.5 g/dL (3.5-5.0); Alkaline Phosphatase 72 U/L (39-117); Anion Gap 16 (12-20); Aspartate Amino Transferase 33 U/L (5-31); Bilirubin Total 0.9 mg/dL (0.0-1.0); Blood Urea Nitrogen 26 mg/dL (9-16); Calcium 9.8 mg/dL (8.4-10.2); Carbon Dioxide 27 mmol/L (22-29); Chloride 102 mmol/L (96-108); Cholesterol 202 mg/dL (<200); Estimated Glomerular Filt Rate > 60; Glucose Fasting 268 mg/dL (60-99); HDL Cholesterol 45 mg/dL (>40); LDL Cholesterol Calculated 119 mg/dL (<100); Potassium 4.5 mmol/L (3.3-5.1); Sodium 140 mmol/L (135-145); Total Protein 7.2 g/dL (6.5-8.0); Triglycerides 194 mg/dL (<150)
[2023-12-21 11:09] LABS: Estimated Average Glucose 229 mg/dL; Hemoglobin A1c % 9.6 % (<6.0)
[2023-12-21 11:13] LABS: Vitamin B12 575 pg/mL (200-900)
[2023-12-21 11:20] LABS: Creatinine Urine 53.65 mg/dL; Microalbum/Creatinine Ratio Ur 134.2 ug/mg cr (<30)
== END 2023-12-21 07:39 | disposition home or self-care (01) ==
LOC: HO.HMGCLDS 07:38
PROVIDERS: PCP Nurse Practitioner Family; Visit Provider Nurse Practitioner Family
DX: E11.51 Type 2 diabetes mellitus with diabetic peripheral angiopathy without gangrene (principal); I70.209 Unspecified atherosclerosis of native arteries of extremities, unspecified extremity; E11.29 Type 2 diabetes mellitus with other diabetic kidney complication; R80.9 Proteinuria, unspecified; E66.01 Morbid (severe) obesity due to excess calories; E78.5 Hyperlipidemia, unspecified; I15.2 Hypertension secondary to endocrine disorders
CPT/HCPCS: 36415; 80053; 80061; 82043; 82570; 82607; 83036

== ENCOUNTER 2023-12-22 15:26 | Outpatient (AMB) | payer OTHER, SELFPAY ==
--- NOTE | 2023-12-22 15:36 | MHC.PC.OV ---
Vital Signs 12/22/23 15:38 Height 5 ft 7 in Weight 208 lb BMI 32.6 BP 120/80 Blood Pressure Location Rt brachial Position Sitting Respiration 16 Pulse 104 H Pulse Source Pulse Oximeter Temp 96.4 F L Temp Source Tympanic Pulse Oximetry (%) 97 Oxygen Delivery Method Room Air Intake Visit Reasons: 30 min fu chronic dz, labs Intake Note: follow up on labs Allergies bupropion [From Wellbutrin SR] Adverse Reaction (Mild, Verified 12/22/23 16:03) Insomnia Medication List - Last Reconciled 12/22/23 by Roxanne Beckett, SEMICONDUCTOR PROCESSOR- ammonium lactate 12% 1 appl topical BID empagliflozin (Jardiance) 25 mg PO QAM metformin ER 2,000 mg (4 x 500 mg) PO QPM 90 days pravastatin 20 mg PO BEDTIME sertraline 100 mg PO DAILY Tobacco use date assessed: 06/15/23 Dental Screening Dental Screen Date: 06/15/23 HPI HPI Comments History of Present Illness Details 58-year-old female MDD, obesity, hypertension, diabetes type 2, microalbuminuria, elevated LFTs, hyperlipidemia, Herpes Here today for routine follow up of chronic conditions. Was without Jardiance for 1 month d/t insurance issues that have been resolved. Just got RX 3 days ago. She has experienced hyperglycemia sx of increased thirst, fatigue feeling run down. This has improved since she restarted the Jardiance. Taking Metformin 2000mg as directed. Stopped Wellbutrin as she was having insomnia, nervous energy, heart racing. Took this for 3 weeks and then stopped. Did restart and only lasted 2 days and had return of side effects. Cont on sertraline 100mg. Admits periods of depression and some anxiety. Denies SI/HI. Cont to decline counseling Did see podiatry for treatment of corns bilat feet. Has not used lachydrin since last visit. The following labs were discuss with her today: Labs from 12/21/2023 show normal electrolytes, BUN 26, creatinine 0.86, fasting glucose 268, hemoglobin A1c 9.6%, elevated liver enzymes AST 33, ALT 42, total cholesterol 202, LDL 119, triglycerides 194, HDL 45, normal B12, positive urine microalbumin creatinine ratio 134.2 Exam: Awake alert oriented pleasant Sclera is nonicteric bilat Mucous membranes moist RRR Lung sounds clear to auscultation bilat, dim throughout Abdomen soft, obese, positive hepatomegaly, liver edge palpable No edema bilateral lower extremities, decreased pedal pulses bilat, abnormal monofilament testing bilat, abnormal vibratory sensation bilat, skin thickened callused to feet bilat, scaly, right great toenail onychomycosis, Mood and affect appropriate Plan: Cont Metformin and Jardiance @ current dose Schedule Diabetic eye exam and Mammogram; consider fu w/ podiatry Increase sertraline from 100mg to 125mg daily to help MDD and MARIANA. Cont lac hydrin to bilat feet No change in statin depsite above labs as this was done during a time you were without your Jardiance which could be playing a part (+4 wt gain). RTO 3 months with labs done 1 week before, sooner PRN This note is constructed using voice recognition software. While every effort has been made to ensure accuracy in oil well service operator, still errors may have been included Sometimes, these errors may affect the content or meaning of the given sentence . Total time spent caring for the patient today was 42 minutes. This includes time spent before the visit reviewing the chart, time spent during the visit, and time spent after the visit on documentation [facility] Medical History (Updated 12/23/23 @ 08:10 by AGUSTINA Bazzi) No pertinent past medical history Surgical History (Updated 06/15/23 @ 15:48 by Tatianna Jang CMA) No pertinent past surgical history Social History (Updated 06/15/23 @ 15:46 by Tatianna Jang CMA) Household Members: Other Both parents involved: No Caregiver staying overnight: No Housing: Apartment Are you a primary anesthesiologist and critical care to a significant other at home: No Do you presently have visiting nurse or other home services: No 75 years or older and lives alone: No Alcohol intake: never Patient Tobacco Use Status: Never used Tobacco e-Cigarette/Vaping Use: Never Used Second Hand Smoke Exposure: No service: No Current occupational status: unemployed Current occupational exposures/hazards: No Sexual orientation: Unable to collect Gender identity: Unable to collect Cognitive needs: No Hearing needs: No Vision needs: Yes Questionnaire Thrive Questionnaire Date Thrive assessed: 06/15/23 MARIANA-7 AMB Questionnaire MARIANA-7 Date MARIANA - 7 assessed: 06/15/23 Source: Developed by Drs. David Boykin, Nita Romero, Nicholas Schneider and colleagues, with an educational kim from [employer]. Physical exam (Primary Care) Vital Signs: Last Vital Signs Temp 96.4 F L 12/22/23 15:38 Pulse 104 H 12/22/23 15:38 Resp 16 12/22/23 15:38 BP 120/80 12/22/23 15:38 Pulse Ox 97 12/22/23 15:38 Oxygen Delivery Method Room Air 12/22/23 15:38 BMI result Body Mass Index 32.6 Tobacco/Smoking Status: Tobacco use Status Tobacco use date assessed 06/15/23 12/22/23 15:36 Patient Tobacco Use Status Never used Tobacco 12/22/23 15:36 e-Cigarette/Vaping Use Never Used 12/22/23 15:36 Thrive Assessment: Date of Thrive Assessment Date Thrive assessed 06/15/23 12/22/23 15:36 Assessment and Plan Assessment & Plan (1) Diabetes mellitus type 2 with complications: Code(s): E11.8 - Type 2 diabetes mellitus with unspecified complications (2) Hyperlipidemia associated with type 2 diabetes mellitus: Comment: LDL goal is less than 70 Near goal on pravastatin 20 mg p.o. q.h.s. cont and repeat labs in 3 months Code(s): E11.69 - Type 2 diabetes mellitus with other specified complication; E78.5 - Hyperlipidemia, unspecified (3) Type 2 diabetes mellitus with morbid obesity: Comment: BMI 32.0 lifestyle modifications recommended Code(s): E11.69 - Type 2 diabetes mellitus with other specified complication; E66.01 - Morbid (severe) obesity due to excess calories (4) Microalbuminuria due to type 2 diabetes mellitus: Comment: Greatly improved with the use of Jardiance, continue repeat this in 3 months Code(s): E11.29 - Type 2 diabetes mellitus with other diabetic kidney complication; R80.9 - Proteinuria, unspecified (5) Diabetes type 2 with atherosclerosis of arteries of extremities: Comment: Based on physical exam. On statin. Monitor skin integrity Encouraged use of Lac-Hydrin Refer to podiatry Code(s): E11.51 - Type 2 diabetes mellitus with diabetic peripheral angiopathy without gangrene; I70.209 - Unspecified atherosclerosis of [place] arteries of extremities, unspecified extremity (6) MDD (major depressive disorder), recurrent episode: Code(s): F33.9 - Major depressive disorder, recurrent, unspecified Qualifiers: Major depression episode severity: moderate Qualified Code(s): F33.1 - Major depressive disorder, recurrent, moderate (7) Hypertension complicating diabetes: Comment: blood pressure stable without medications at this time we will continue to monitor Code(s): E11.59 - Type 2 diabetes mellitus with other circulatory complications; I15.2 - Hypertension secondary to endocrine disorders Orders: Orders Lipid Panel 02/25/24 E11.29 - Type 2 diabetes mellitus with other diabetic kidney complication, E11.51 - Type 2 diabetes mellitus with diabetic peripheral angiopathy without gangrene, E11.69 - Type 2 diabetes mellitus with other specified complication, E11.8 - Type 2 diabetes mellitus with unspecified complications, E66.01 - Morbid (severe) obesity due to excess calories, E78.5 - Hyperlipidemia, unspecified, I70.209 - Unspecified atherosclerosis of [place] arteries of extremities, unspecified extremity, R80.9 - Proteinuria, unspecified Hemoglobin A1c 02/25/24 E11.29 - Type 2 diabetes mellitus with other diabetic kidney complication, E11.51 - Type 2 diabetes mellitus with diabetic peripheral angiopathy without gangrene, E11.69 - Type 2 diabetes mellitus with other specified complication, E11.8 - Type 2 diabetes mellitus with unspecified complications, E66.01 - Morbid (severe) obesity due to excess calories, E78.5 - Hyperlipidemia, unspecified, I70.209 - Unspecified atherosclerosis of [place] arteries of extremities, unspecified extremity, R80.9 - Proteinuria, unspecified Comprehensive [place]. Panel Fast 02/25/24 E11.29 - Type 2 diabetes mellitus with other diabetic kidney complication, E11.51 - Type 2 diabetes mellitus with diabetic peripheral angiopathy without gangrene, E11.69 - Type 2 diabetes mellitus with other specified complication, E11.8 - Type 2 diabetes mellitus with unspecified complications, E66.01 - Morbid (severe) obesity due to excess calories, E78.5 - Hyperlipidemia, unspecified, I70.209 - Unspecified atherosclerosis of [place] arteries of extremities, unspecified extremity, R80.9 - Proteinuria, unspecified Microalbumin, Random (w Creat) 02/25/24 E11.29 - Type 2 diabetes mellitus with other diabetic kidney complication, E11.51 - Type 2 diabetes mellitus with diabetic peripheral angiopathy without gangrene, E11.69 - Type 2 diabetes mellitus with other specified complication, E11.8 - Type 2 diabetes mellitus with unspecified complications, E66.01 - Morbid (severe) obesity due to excess calories, E78.5 - Hyperlipidemia, unspecified, I70.209 - Unspecified atherosclerosis of [place] arteries of extremities, unspecified extremity, R80.9 - Proteinuria, unspecified Medications: New sertraline 25 mg PO DAILY 90 tabs 1RF Refilled metformin ER 2,000 mg (4 x 500 mg) PO QPM 90 days 360 tabs 1RF empagliflozin (Jardiance) 25 mg PO QAM 90 tabs 1RF Coding Level of Care Code Est Pt Level 5 (31652) Diagnoses Diabetes mellitus type 2 with complications E11.8 Hyperlipidemia associated with type 2 diabetes mellitus E11.69; E78.5 Type 2 diabetes mellitus with morbid obesity E11.69; E66.01 Microalbuminuria due to type 2 diabetes mellitus E11.29; R80.9 Diabetes type 2 with atherosclerosis of arteries of extremities E11.51; I70.209 Moderate episode of recurrent major depressive disorder F33.1 Major depression episode severity: moderate Hypertension complicating diabetes E11.59; I15.2
[2023-12-22 15:38] VITALS: BP 120/80; PULSE 104; RESP 16; TEMP 35.8; O2SAT 97; BMI 32.6
== END 2023-12-22 16:26 | disposition home or self-care (01) ==
PROVIDERS: PCP Nurse Practitioner Family; Visit Provider Nurse Practitioner Family
DX: E11.69 Type 2 diabetes mellitus with other specified complication (principal); E66.01 Morbid (severe) obesity due to excess calories; E11.29 Type 2 diabetes mellitus with other diabetic kidney complication; E11.51 Type 2 diabetes mellitus with diabetic peripheral angiopathy without gangrene; I70.209 Unspecified atherosclerosis of native arteries of extremities, unspecified extremity; F33.1 Major depressive disorder, recurrent, moderate; E11.59 Type 2 diabetes mellitus with other circulatory complications; E78.5 Hyperlipidemia, unspecified; R80.9 Proteinuria, unspecified; I15.2 Hypertension secondary to endocrine disorders
CPT/HCPCS: 99215

== ENCOUNTER 2024-03-13 08:04 | Outpatient (REF) | payer OTHER, SELFPAY ==
[2024-03-13 10:23] LABS: Estimated Average Glucose 209 mg/dL; Hemoglobin A1C 301.0798 umol/L; Hemoglobin A1c % 8.9 % (<6.0); Total Hemoglobin (HGBA1C) 4073.7212 umol/L
[2024-03-13 10:51] LABS: Alanine Aminotransferase 47 U/L (0-31); Albumin Level 4.4 g/dL (3.5-5.0); Alkaline Phosphatase 69 U/L (39-117); Anion Gap 12 (12-20); Aspartate Amino Transferase 35 U/L (5-31); Bilirubin Total 0.6 mg/dL (0.0-1.0); Blood Urea Nitrogen 19 mg/dL (9-16); Calcium 9.6 mg/dL (8.4-10.2); Carbon Dioxide 29 mmol/L (22-29); Chloride 104 mmol/L (96-108); Cholesterol 216 mg/dL (<200); Estimated Glomerular Filt Rate > 60; Glucose Fasting 240 mg/dL (60-99); HDL Cholesterol 50 mg/dL (>40); LDL Cholesterol Calculated 122 mg/dL (<100); Potassium 4.2 mmol/L (3.3-5.1); Sodium 141 mmol/L (135-145); Total Protein 7.1 g/dL (6.5-8.0); Triglycerides 224 mg/dL (<150)
[2024-03-13 11:06] LABS: Microalbum/Creatinine Ratio Ur 44.8 ug/mg cr (<30)
== END 2024-03-13 08:05 | disposition home or self-care (01) ==
LOC: HO.HMGCLDS 08:04
PROVIDERS: PCP Nurse Practitioner Family; Visit Provider Nurse Practitioner Family
DX: E11.51 Type 2 diabetes mellitus with diabetic peripheral angiopathy without gangrene (principal); I70.209 Unspecified atherosclerosis of native arteries of extremities, unspecified extremity; E11.29 Type 2 diabetes mellitus with other diabetic kidney complication; R80.9 Proteinuria, unspecified; E11.69 Type 2 diabetes mellitus with other specified complication; E66.01 Morbid (severe) obesity due to excess calories; E78.5 Hyperlipidemia, unspecified; E11.8 Type 2 diabetes mellitus with unspecified complications
CPT/HCPCS: 36415; 80053; 80061; 82043; 82570; 83036

== ENCOUNTER 2024-03-14 15:25 | Outpatient (AMB) | payer OTHER, SELFPAY ==
--- NOTE | 2024-03-14 15:26 | A.OFFPC_ITS ---
Vital Signs 03/14/24 15:31 Height 5 ft 7 in Weight 205 lb BMI 32.1 BP 130/60 Blood Pressure Location Lt brachial Position Sitting Respiration 13 Pulse 91 Pulse Source Pulse Oximeter Pulse Oximetry (%) 99 Oxygen Delivery Method Room Air Intake Visit Reasons: 3 mo 30 min fu complex conditions Intake Note: follow up Wardrobe Mistress Required: No Allergies bupropion [From Wellbutrin SR] Adverse Reaction (Mild, Verified 03/14/24 15:39) Insomnia Medication List - Last Reconciled 03/14/24 by BING Bazzi- ammonium lactate 12% 1 appl topical BID empagliflozin (Jardiance) 25 mg PO QAM metformin ER 2,000 mg (4 x 500 mg) PO QPM 90 days pravastatin 20 mg PO BEDTIME sertraline 100 mg PO DAILY sertraline 25 mg PO DAILY Tobacco use date assessed: 06/15/23 Dental Screening Dental Screen Date: 06/15/23 HPI HPI Comments History of Present Illness Details 58-year-old female MDD, obesity, hyperte nsion, diabetes type 2, microalbuminuria, elevated LFTs, hyperlipidemia, Herpes The patient is a 58-year-old female presenting with Major Depressive Disorder. The patient reports long-standing depression, which has been resistant to current treatment measures. The dose of sertraline was recently increased from 100 mg to 125 mg daily in an attempt to manage symptoms. The patient noted increased irritability when taking 125 mg at night and subsequently experimented with dosing 100 mg at night and 25 mg in the morning, which provided some relief without clear improvement in depressive symptoms. The patient has a history of a poor response to bupropion and opts not to switch antidepressants, citing concerns about medication changes worsening her mood. 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 Type 2 Diabetes Mellitus and its management were also discussed. The patient has been taking Jardiance and metformin, experiencing some difficulty due to pharmacy insurance issues, which have since been resolved. Despite resuming Jardiance, there is only a small improvement in A1c levels?from 9.6% to 8.9%. The patient is already on the maximum doses of Jardiance and metformin, and an additional agent for diabetes management was considered. The patient engages minimally in lifestyle modifications and reports occasional dietary indiscretions, notably consuming sweets. Mammo - has not scheduled yet; Has the order. 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 - Substance Use: No substance use was di scussed. - Diet: Reports consumption of simple hook gars and packaged foods. - Exercise and Activity Level: Not discu ssed. - Family Situation: Unknown. Review of Systems - Psychiatric: Reports irritability when dosing sertraline differently. - Musculoskeletal: Denies joint or muscl e pain. - Neurological: Denies headaches or dottie ting. - Dermatological: Reports a non-healing diabetic foot ulcer. Physical Exam - Psychiatric- Cooperative, alert, and o riented. - Cardiovascular- Blood pressure 130/60 mmHg. - Respiratory- Clear to auscultation elle aterally, dim throughout - Gastrointestinal- No tenderness upon a bdominal palpation, slight discomfort over the ribs L, positive hepatomegaly, liver edge palpable - Neurological- Cranial nerves intact. B ilateral lower extremity checked for swelling; no significant edema noted. - Dermatological- Diabetic foot examined ; skin showed no significant deterioration, No edema bilateral lower extremities, decreased pedal pulses bilat, abnormal monofilament testing bilat, abnormal vibratory sensation bilat, skin thickened callused to feet bilat, scaly, right great toenail onychomycosis Results - Labs: Fasting glucose at 240 mg/dL, A1 c at 8.9%, elevated liver enzymes, elevated cholesterol levels. Plan - Major Depressive Disorder: Consult [facility] psychiatric nurse practitioner for potential SNRI initiation or adjunct atypical antidepressant. Continue current sertraline dosing. - Type 2 Diabetes Mellitus: Introduce gl yburide 5 mg once daily for better glycemic control. Monitor for hypoglycemic episodes. - Hyperlipidemia: Increase pravastatin t o 40 mg for better cholesterol manag ement. - Diabetic Foot: Encourage the use of pr escribed topical treatment and monitor for any changes. - Hypertension: Continue current managem ent; blood pressure is well-controlled. - Preventive Measures: Referral to [facility], eye exam for diabetic retinopathy, and mammogram scheduling. Patient was informed and verbally consented to the use of an ambient scribe clinic note documentation during this visit. Discussion Notes During this visit, I discussed with the patient the persistence of her depressive symptoms despite dose adjustments of sertraline. The consideration of transitioning to an SNRI or adding atypical antidepressants needs further consultation with our psychiatric nurse practitioner. The patient expressed valid concerns regarding the potential exacerbation of symptoms with medication changes, which I acknowledged. The psychological impact of diabetes management and its implications on her mental health was addressed. I recommended the introduction of glyburide to better control blood sugar levels anticipated to reduce her A1c to target levels. We discussed potential hypoglycemic episodes as a known side effect and the appropriate corrective actions using the rule of 15. In addressing hyperlipidemia, increasing pravastatin was deemed necessary due to suboptimal cholesterol levels. We also planned for preventive care, including diabetic eye examinations and mammography, emphasizing the importance of compliance with health maintenance measures. I highlighted the benefits of structured therapy, especially during medication transitions, and encouraged utilizing the employer-provided therapy sessions. Follow-up and monitoring of psychiatric and medical conditions were discussed. Patient Instructions - Continue sertraline at current dosing until advised otherwise. - Start glyburide 5 mg daily. Be vigilan t for signs of hypoglycemia. - Increase pravastatin to 40 mg as presc ribed. - Apply diabetic foot cream daily and mo nitor for any changes. - Schedule and attend mammogram and diab etic eye exam as planned. - Explore therapy sessions offered throu gh the workplace and pursue [facility] for additional support. - Schedule and attend dental check-up [facility] comprehensive care. - Monitor blood pressure and blood sugar levels regularly. - Return for repeat labs in three months with fasting blood sample. - Contact our office with any medication side effects or health changes. at 1700 sent clinical message to ADRIAN Latham w/ request for e-consult. Will f/u via portal w/ patient once recs have been made Total time spent caring for the patient today was 45 minutes. This includes time spent before the visit reviewing the chart, time spent during the visit, and time spent after the visit on documentation [facility] Medical History (Updated 03/14/24 @ 17:01 by AGUSTINA Bazzi) No pertinent past medical history Surgical History (Updated 06/15/23 @ 15:48 by Tatianna Jang CMA) No pertinent past surgical history Social History (Updated 06/15/23 @ 15:46 by Tatianna Jang CMA) Household Members: Other Both parents involved: No Caregiver staying overnight: No Housing: Apartment Are you a primary certified caregiver to a significant other at home: No Do you presently have visiting nurse or other home services: No 75 years or older and lives alone: No Alcohol intake: never Patient Tobacco Use Status: Never used Tobacco e-Cigarette/Vaping Use: Never Used Second Hand Smoke Exposure: No service: No Current occupational status: unemployed Current occupational exposures/hazards: No Sexual orientation: Unable to collect Gender identity: Unable to collect Cognitive needs: No Hearing needs: No Vision needs: Yes Questionnaire PHQ-9 Over the last 2 weeks, how often have you been bothered by any of the following problems? 1. Little interest or pleasure in doing things: several days 2. Feeling down, depressed, or hopeless: several days 3. Trouble falling or staying asleep, or sleeping too much: several days 4. Feeling tired or having little energy: several days 5. Poor appetite or overeating: several days 6. Feeling bad about yourself - or that you are a failure or have let yourself or your family down: several days 7. Trouble concentrating on things, such as reading the newspaper or watching television: several days 8. Moving or speaking so slowly that other people could have noticed. Or the opposite - being so fidgety or restless that you have been moving around a lot more than usual: not at all 9. Thoughts that you would be better off or of hurting yourself in some way: not at all Total score: 7 73951 - PHQ-9 Billing: Yes Source: Developed by Drs. David Boykin, Nita Romero, Nicholas Schneider and colleagues, with an educational kim from [employer]. Thrive Questionnaire Date Thrive assessed: 03/14/24 I am a: Patient What is your living situation today?: I have a steady place to live Within the past 12 months, did the food you bought not last and you didn't have the money to get more?: Never true Within the past 12 months, did you worry whether your food would run out before you got money to buy more?: Never true Do you have trouble paying for medicines?: No Do you have trouble getting transportation to medical appointments?: No Do you have trouble paying your heating and electricity bill?: No Do you have trouble taking care of your child, family member or friend?: I choose not to answer this question Do you have trouble with day-to-day activities such as bathing, preparing meals, shopping, managing finances, etc.?: I choose not to answer this question Are you currently unemployed and looking for a job?: Yes Are you interested in more education?: No Please select the resources that you would like help with: None Currently or been in a relationship where the following occur: No concerns reported THRIVE Score: 0 AUDIT C Alcohol Use Questionnaire (AUDIT-C) 1. How often do you have a drink containing alcohol?: Never 3. How often do you have six or more drinks on one occasion?: Never Total Score: 0 MARIANA-7 AMB Questionnaire MARIANA-7 Date MARIANA - 7 assessed: 03/14/24 Feeling nervous, anxious, or on edge: 0 = Not at all Not being able to stop or control worryin = Several days Worrying too much about different things: 0 = Not at all Trouble relaxin = Not at all Being so restless that it is hard to sit still: 0 = Not at all Becoming easily annoyed or irritable: 1 = Several days Feeling afraid as if something awful might happen: 0 = Not at all Total MARIANA-7 score (0-4 normal; 5-9 mild; 10-14 moderate; 15-21 severe): 2 Source: Developed by Drs. David Boykin, Nita Romero, Nicholas Schneider and colleagues, with an educational kim from [employer]. MARIANA-7 Assessment Billing MARIANA-7 Assessment Tool: MARIANA-7 Assessment 13842 Physical exam (Primary Care) Vital Signs: Last Vital Signs Pulse 91 03/14/24 15:31 Resp 13 03/14/24 15:31 BP 130/60 03/14/24 15:31 Pulse Ox 99 03/14/24 15:31 Oxygen Delivery Method Room Air 03/14/24 15:31 BMI result Body Mass Index 32.1 Tobacco/Smoking Status: Tobacco use Status Tobacco use date assessed 06/15/23 03/14/24 15:28 Patient Tobacco Use Status Never used Tobacco 03/14/24 15:28 e-Cigarette/Vaping Use Never Used 03/14/24 15:28 PHQ-9: PHQ-9 Score PHQ-9: Total score 7 03/14/24 16:22 Thrive Assessment: Date of Thrive Assessment Date Thrive assessed 03/14/24 03/14/24 15:28 Currently or been in a relationship where the following occur: No concerns reported Office Procedures Flu Questionnaire Does the patient have a severe egg allergy?: No Does the patient have severe life threatening allergies?: No Does the patient have a fever or illness today?: No Has the patient ever had Guillain-[place] Syndrome?: No Has the patient ever had any past reaction to a flu shot?: No Immunizations Fluarix Triv [id number] (PF) 45 mcg (15 mcg x 3)/0.5 mL IM syringe Performing Provider: AGUSTINA Bazzi Performing Location: [facility] [place] [facility] Administered by: Harriet Valdez RN on 03/14/24 16:22 Dose Route Admin Location Dispensed Lot Number Expiration Date NDC Fuel Attendant 0.5 mL IM Left Deltoid 0.5 mL [id number] 10/23/24 52600-428-75 [employer] VIS Given Date VIS Provided VIS Publication Date 03/14/24 Single Vaccine 20 Eligibility Eligibility Date Funding Source Not [facility] Eligible 03/14/24 Private Coding Level of Care Code Est Pt Level 5 (65414) Complex EM visit Add On G2211 Diagnoses Diabetes mellitus type 2 with complications E11.8 Moderate episode of recurrent major depressive disorder F33.1 Major depression episode severity: moderate Diabetes type 2 with atherosclerosis of arteries of extremities E11.51; I70.209 Type 2 diabetes mellitus with morbid obesity E11.69; E66.01 Microalbuminuria due to type 2 diabetes mellitus E11.29; R80.9 Neuropathy due to type 2 diabetes mellitus E11.40 Hypertension complicating diabetes E11.59; I15.2 Additional Codes MARIANA-7 Assessment Billing - MARIANA-7 Assessment Tool: MARIANA-7 Assessment 12148 ([id number]) PHQ-9 - 79655 - PHQ-9 Billing: Yes ([id number]) Assessment & Plan Assessment & Plan (1) Diabetes mellitus type 2 with complications: Code(s): E11.8 - Type 2 diabetes mellitus with unspecified complications Category: Medical (2) MDD (major depressive disorder), recurrent episode: Code(s): F33.9 - Major depressive disorder, recurrent, unspecified Category: Medical Qualifiers: Major depression episode severity: moderate Qualified Code(s): F33.1 - Major depressive disorder, recurrent, moderate (3) Diabetes type 2 with atherosclerosis of arteries of extremities: Comment: Based on physical exam. On statin. Monitor skin integrity Encouraged use of Lac-Hydrin Code(s): E11.51 - Type 2 diabetes mellitus with diabetic peripheral angiopathy without gangrene; I70.209 - Unspecified atherosclerosis of [place] arteries of extremities, unspecified extremity Category: Medical (4) Type 2 diabetes mellitus with morbid obesity: Comment: BMI 32.0 lifestyle modifications recommended Code(s): E11.69 - Type 2 diabetes mellitus with other specified complication; E66.01 - Morbid (severe) obesity due to excess calories Category: Medical (5) Microalbuminuria due to type 2 diabetes mellitus: Comment: Greatly improved with the use of Jardiance, continue repeat this in 3 months Code(s): E11.29 - Type 2 diabetes mellitus with other diabetic kidney complication; R80.9 - Proteinuria, unspecified Category: Medical (6) Neuropathy due to type 2 diabetes mellitus: Comment: Abnormal monofilament and vibratory sensations bilat Continue Lac-Hydrin cream b.i.d. to help with the thickened scaling skin. Diabetic foot education provided Code(s): E11.40 - Type 2 diabetes mellitus with diabetic neuropathy, unspecified Category: Medical (7) Hypertension complicating diabetes: Comment: blood pressure stable without medications at this time we will continue to monitor Code(s): E11.59 - Type 2 diabetes mellitus with other circulatory complications; I15.2 - Hypertension secondary to endocrine disorders Category: Medical Plan . Orders: Orders Vitamin B12 and Folate 3 Months E11.29 - Type 2 diabetes mellitus with other diabetic kidney complication, E11.40 - Type 2 diabetes mellitus with diabetic neuropathy, unspecified, E11.51 - Type 2 diabetes mellitus with diabetic peripheral angiopathy without gangrene, E11.59 - Type 2 diabetes mellitus with other circulatory complications, E11.69 - Type 2 diabetes mellitus with other specified complication, E11.8 - Type 2 diabetes mellitus with unspecified complications, E66.01 - Morbid (severe) obesity due to excess calories, I15.2 - Hypertension secondary to endocrine disorders, I70.209 - Unspecified atherosclerosis of [place] arteries of extremities, unspecified extremity, R80.9 - Proteinuria, unspecified Hemoglobin A1c 3 Months E11.29 - Type 2 diabetes mellitus with other diabetic kidney complication, E11.40 - Type 2 diabetes mellitus with diabetic neuropathy, unspecified, E11.51 - Type 2 diabetes mellitus with diabetic peripheral angiopathy without gangrene, E11.59 - Type 2 diabetes mellitus with other circulatory complications, E11.69 - Type 2 diabetes mellitus with other specified complication, E11.8 - Type 2 diabetes mellitus with unspecified complications, E66.01 - Morbid (severe) obesity due to excess calories, I15.2 - Hypertension secondary to endocrine disorders, I70.209 - Unspecified atherosclerosis of [place] arteries of extremities, unspecified extremity, R80.9 - Proteinuria, unspecified Influenza [id number] Immunization Today Z23 - Encounter for immunization Comprehensive [place]. Panel Fast 3 Months E11.29 - Type 2 diabetes mellitus with other diabetic kidney complication, E11.40 - Type 2 diabetes mellitus with diabetic neuropathy, unspecified, E11.51 - Type 2 diabetes mellitus with diabetic peripheral angiopathy without gangrene, E11.59 - Type 2 diabetes mellitus with other circulatory complications, E11.69 - Type 2 diabetes mellitus with other specified complication, E11.8 - Type 2 diabetes mellitus with unspecified complications, E66.01 - Morbid (severe) obesity due to excess calories, I15.2 - Hypertension secondary to endocrine disorders, I70.209 - Unspecified atherosclerosis of [place] arteries of extremities, unspecified extremity, R80.9 - Proteinuria, unspecified Lipid Panel 3 Months E11.29 - Type 2 diabetes mellitus with other diabetic kidney complication, E11.40 - Type 2 diabetes mellitus with diabetic neuropathy, unspecified, E11.51 - Type 2 diabetes mellitus with diabetic peripheral angiopathy without gangrene, E11.59 - Type 2 diabetes mellitus with other circulatory complications, E11.69 - Type 2 diabetes mellitus with other specified complication, E11.8 - Type 2 diabetes mellitus with unspecified complications, E66.01 - Morbid (severe) obesity due to excess calories, I15.2 - Hypertension secondary to endocrine disorders, I70.209 - Unspecified atherosclerosis of [place] arteries of extremities, unspecified extremity, R80.9 - Proteinuria, unspecified Microalbumin, Random (w Creat) 3 Months E11.29 - Type 2 diabetes mellitus with other diabetic kidney complication, E11.40 - Type 2 diabetes mellitus with diabetic neuropathy, unspecified, E11.51 - Type 2 diabetes mellitus with diabetic peripheral angiopathy without gangrene, E11.59 - Type 2 diabetes mellitus with other circulatory complications, E11.69 - Type 2 diabetes mellitus with other specified complication, E11.8 - Type 2 diabetes mellitus with unspecified complications, E66.01 - Morbid (severe) obesity due to excess calories, I15.2 - Hypertension secondary to endocrine disorders, I70.209 - Unspecified atherosclerosis of [place] arteries of extremities, unspecified extremity, R80.9 - Proteinuria, unspecified Referrals Ophthalmology Referral E11.59 - Type 2 diabetes mellitus with other circulatory complications, E11.8 - Type 2 diabetes mellitus with unspecified complications, I15.2 - Hypertension secondary to endocrine disorders Counseling Referral F33.1 - Major depressive disorder, recurrent, moderate Medications: New pravastatin 40 mg PO BEDTIME 90 tabs 0RF glyburide 5 mg PO DAILY 90 tabs 0RF Discontinued pravastatin Discontinued Reason: Doctor's Order 20 mg PO BEDTIME 90 tabs 1RF
[2024-03-14 15:31] VITALS: BP 130/60; PULSE 91; RESP 13; O2SAT 99; BMI 32.1
== END 2024-03-14 16:21 | disposition home or self-care (01) ==
PROVIDERS: PCP Nurse Practitioner Family; Visit Provider Nurse Practitioner Family
DX: E11.51 Type 2 diabetes mellitus with diabetic peripheral angiopathy without gangrene (principal); F33.1 Major depressive disorder, recurrent, moderate; E11.69 Type 2 diabetes mellitus with other specified complication; I70.209 Unspecified atherosclerosis of native arteries of extremities, unspecified extremity; E66.01 Morbid (severe) obesity due to excess calories; E11.29 Type 2 diabetes mellitus with other diabetic kidney complication; E11.40 Type 2 diabetes mellitus with diabetic neuropathy, unspecified; E11.59 Type 2 diabetes mellitus with other circulatory complications; R80.9 Proteinuria, unspecified; I15.2 Hypertension secondary to endocrine disorders

== ENCOUNTER → 2024-03-14 15:25 | Outpatient (BNVA) | payer OTHER, SELFPAY | PROVIDERS: PCP Nurse Practitioner Family; Visit Provider Nurse Practitioner Family | DX: Z23 Encounter for immunization (principal); F33.1 Major depressive disorder, recurrent, moderate; E11.51 Type 2 diabetes mellitus with diabetic peripheral angiopathy without gangrene; I70.209 Unspecified atherosclerosis of native arteries of extremities, unspecified extremity; E11.69 Type 2 diabetes mellitus with other specified complication; E66.01 Morbid (severe) obesity due to excess calories; E11.29 Type 2 diabetes mellitus with other diabetic kidney complication; E11.59 Type 2 diabetes mellitus with other circulatory complications; E11.40 Type 2 diabetes mellitus with diabetic neuropathy, unspecified; I15.2 Hypertension secondary to endocrine disorders | CPT/HCPCS: 90471; 90656; 96127; 99212 ==

== ENCOUNTER 2024-06-19 07:30 | Outpatient (REF) | payer OTHER, SELFPAY ==
[2024-06-19 11:01] LABS: Estimated Average Glucose 180 mg/dL; Hemoglobin A1C 242.4708 umol/L; Hemoglobin A1c % 7.9 % (<6.0); Total Hemoglobin (HGBA1C) 3862.1153 umol/L
[2024-06-19 11:21] LABS: Alanine Aminotransferase 47 U/L (0-31); Albumin Level 4.4 g/dL (3.5-5.0); Alkaline Phosphatase 68 U/L (39-117); Anion Gap 15 (12-20); Aspartate Amino Transferase 37 U/L (5-31); Bilirubin Total 0.5 mg/dL (0.0-1.0); Blood Urea Nitrogen 20 mg/dL (9-16); Calcium 11.2 mg/dL (8.4-10.2); Carbon Dioxide 30 mmol/L (22-29); Chloride 104 mmol/L (96-108); Cholesterol 196 mg/dL (<200); Estimated Glomerular Filt Rate > 60; Glucose Fasting 178 mg/dL (60-99); HDL Cholesterol 53 mg/dL (>40); LDL Cholesterol Calculated 101 mg/dL (<100); Potassium 3.9 mmol/L (3.3-5.1); Sodium 145 mmol/L (135-145); Total Protein 7.6 g/dL (6.5-8.0); Triglycerides 211 mg/dL (<150)
[2024-06-19 11:40] LABS: Folate 9.2 ng/mL (> or = 4.0); Vitamin B12 546 pg/mL (200-900)
[2024-06-19 12:27] LABS: Creatinine Urine 46.56 mg/dL; Microalbum/Creatinine Ratio Ur 412.3 ug/mg cr (<30)
== END 2024-06-19 07:31 | disposition home or self-care (01) ==
LOC: HO.HMGCLDS 07:30
PROVIDERS: PCP Nurse Practitioner Family; Visit Provider Nurse Practitioner Family
DX: E11.51 Type 2 diabetes mellitus with diabetic peripheral angiopathy without gangrene (principal); I70.209 Unspecified atherosclerosis of native arteries of extremities, unspecified extremity; E11.40 Type 2 diabetes mellitus with diabetic neuropathy, unspecified; E11.29 Type 2 diabetes mellitus with other diabetic kidney complication; R80.9 Proteinuria, unspecified; E11.69 Type 2 diabetes mellitus with other specified complication; E66.01 Morbid (severe) obesity due to excess calories; E11.59 Type 2 diabetes mellitus with other circulatory complications; I15.2 Hypertension secondary to endocrine disorders; E11.8 Type 2 diabetes mellitus with unspecified complications
CPT/HCPCS: 36415; 80053; 80061; 82043; 82570; 82607; 82746; 83036

== ENCOUNTER 2024-06-20 15:20 | Outpatient (AMB) | payer OTHER, SELFPAY ==
--- NOTE | 2024-06-20 15:21 | A.OFFPC_ITS ---
Vital Signs 06/20/24 15:25 Height 5 ft 7 in Weight 210 lb 6 oz BMI 32.9 BP 117/67 Blood Pressure Location Lt brachial Position Sitting Respiration 12 Pulse 97 Pulse Source Pulse Oximeter Temp 96.9 F Temp Source Oral Pulse Oximetry (%) 98 Oxygen Delivery Method Room Air Intake Visit Reasons: 3 mo 30 min fu chronic conditions, labs 1 week bef Intake Note: Follow up to review labs Grill Cook Required: No Allergies bupropion [From Wellbutrin SR] Adverse Reaction (Mild, Verified 06/20/24 15:37) Insomnia Medication List - Last Reconciled 06/20/24 by Roxanne Beckett, [employer]LECT[employer] SERVIC[employer]-BC ammonium lactate 12% 1 appl topical BID aripiprazole (Abilify) 2 mg PO BEDTIME empagliflozin (Jardiance) 25 mg PO QAM glyburide 5 mg PO DAILY metformin ER 2,000 mg (4 x 500 mg) PO QPM 90 days pravastatin 40 mg PO BEDTIME sertraline 100 mg PO DAILY Tobacco use date assessed: 06/20/24 Dental Screening Dental Screen Date: 06/20/24 Did you have a dental visit in the last 12 months?: Yes Did you have a dental problem in the last 6 months where you did not have access to dental care?: No Was dental information given to patient?: Patient has dentist HPI HPI Comments History of Present Illness Details 59-year-old female MDD, obesity, hyperte nsion, diabetes type 2, microalbuminuria, elevated LFTs, hyperlipidemia, Herpes Health maintenance Colonoscopy 2017 Mammogram 11/07/2021 within normal limits; has order just needs to schedule Pap DEXA Diabetic eye exam referral in place to [facility] - The patient is a 59-year-old female pr esenting with the management of Major Depressive Disorder. - Previously on sertraline 100 mg and 25 mg but reverted to 100 mg due to irritability. - Added Abilify 2 mg with noted improvem ent and some decrease in irritability; therapy appointment is scheduled 07/19/24 - Reports improvement in sx, though not complete, with some work absences weekly. - Type 2 Diabetes Mellitus: - Treatment includes metformin, Jardiance, and recently added glyburide. - A1c improved to 7.9% from 8.9%. - No hypoglycemia, noted thirst. Likely related to abilify & not glucose. - Hyperlipidemia: - Pravastatin now at 4 0 mg, cholesterol markers significantly improved. LDL remains > goal - Hypertension: - BP at goal w/o meds. + microalbumin in fasting setting. Physical Exam - Psychiatric- Cooperative, alert, and o riented. Mood and affect appropriate - Cardiovascular- Blood pressure 130/60 mmHg, RRR - Respiratory- Clear to auscultation elle aterally, dim throughout - Gastrointestinal- No tenderness upon a bdominal palpation, positive hepatomegaly, liver edge palpable - Neurological- Cranial nerves intact. B ilateral lower extremity checked for swelling; no edema noted. - Dermatological- Diabetic foot examined ; skin showed no significant deterioration, No edema bilateral lower extremities, decreased pedal pulses bilat, abnormal monofilament testing bilat, abnormal vibratory sensation bilat, skin thickened callused to feet bilat, scaly Results Labs from 06/19/2024 are compared to labs done in February of 2024 Normal electrolytes, BUN 20, creatinine 0.73, EGFR greater than 60, fasting glucose 178 hemoglobin A1c 7.9% this greatly improved from 8.9%, calcium elevated at 11.2, stable LFTs AST 37, ALT 47, triglycerides elevated yet improved to 111, total cholesterol he has improved while 196, LDL is also impr haley 101, HDL is improved at 53, B12 and folate are normal, elevated microalbumin creatinine ratio 412.3 this is worse than the previous 2 Discussion Notes During our discussion, I addressed the patient's Major Depressive Disorder with a medication adjustment plan. We discussed increasing Aripiprazole from 2 mg to 4 mg at bedtime to improve depressive symptoms further. I assured the patient that the higher dose Abilify is typically well-tolerated. We discussed her diabetes management, acknowledging the improvement in A1c with the current regimen. I proposed increasing glyburide to twice daily unless hypoglycemic symptoms arose, which the patient accepted. For hyperlipidemia, we opted to increase pravastatin to 80 mg, supported by recent lab improvements. I reinforced therapy adherence and referred her to the [facility] counseling on July 20. I emphasized maintaining hydration for future labs and calibrated non-fasting lab conditions for accuracy. Lastly, recommendations included pursuing an eye exam, dental care, and pending mammogram, with reassurances provided concerning procedural anxiety for the eye exam. Assessment and Plan 1. Major Depressive Disorder: Initiated an increase in Aripiprazole to 4 mg at bedtime, based on a positive response at 2 mg but acknowledging the need for greater symptom management. The patient will attend therapy on July 20. Overall management monitored through both medication and therapy. 2. Type 2 Diabetes Mellitus: A1c improve d with metformin, Jardiance, and glyburide regimen. To optimize control, glyburide will now be administered twice daily. Future labs nonfasting, ensuring adequate hydration and review of glycemic symptoms for medication adjustments. 3. Hyperlipidemia: Pravastatin increased to 80 mg with demonstrated lipid profile improvements. Target remains LDL <70 mg/dL; adherence and cholesterol monitoring maintained. 4. Hypertension:At goal w/o meds. Patient Instructions - Take Aripiprazole 4 mg pills at bedtim e as prescribed. - Continue metformin and Jardiance as di rected; take glyburide twice daily. - Take pravastatin 80 mg daily; use curr ent tablets until gone then refill. - Schedule and attend eye exam, dental c heck, and mammogram. - Stay hydrated for upcoming nonfasting labs. - If experiencing concerning symptoms or side effects, seek care promptly. - RTO 3 months w/ repeat labs, sooner AR N Consent Consent for increasing Abilify dosage was obtained verbally from the patient. I explained the medication adjustment is to improve depressive symptoms and the likelihood of increased efficacy with minimal increase in risk. Discussion included monitoring for any atypical side effects, with explicit encouragement to notify in case of adverse responses. The patient acknowledged understanding and consented to the revised medication plan. Patient was informed and verbally consented to the use of an ambient scribe for clinic note documentation during this visit. Total time spent caring for the patient today was 45 minutes. This includes time spent before the visit reviewing the chart, time spent during the visit, and time spent after the visit on documentation, reviewing laboratory results, diagnostic imaging, medications, performing a medically necessary evaluation, counseling on diagnoses, care coordination, ordering appropriate tests, ordering appropriate medications, review of tests performed by other providers, reporting test results with the patient, communication with other healthcare providers. [facility] Medical History (Updated 06/20/24 @ 17:17 by BING Bazzi-) No pertinent past medical history Surgical History (Updated 06/15/23 @ 15:48 by Tatianna Jang [facility]) No pertinent past surgical history Social History (Updated 06/15/23 @ 15:46 by Tatianna Jang [facility]) Household Members: Other Both parents involved: No Caregiver staying overnight: No Housing: Apartment Are you a primary healthcare business analyst to a significant other at home: No Do you presently have visiting nurse or other home services: No 75 years or older and lives alone: No Alcohol intake: never Patient Tobacco Use Status: Never used Tobacco e-Cigarette/Vaping Use: Never Used Second Hand Smoke Exposure: No service: No Current occupational status: unemployed Current occupational exposures/hazards: No Sexual orientation: Unable to collect Gender identity: Unable to collect Cognitive needs: No Hearing needs: No Vision needs: Yes Questionnaire PHQ-9 Over the last 2 weeks, how often have you been bothered by any of the following problems? 1. Little interest or pleasure in doing things: several days 2. Feeling down, depressed, or hopeless: several days 3. Trouble falling or staying asleep, or sleeping too much: several days 4. Feeling tired or having little energy: several days 5. Poor appetite or overeating: not at all 6. Feeling bad about yourself - or that you are a failure or have let yourself or your family down: several days 7. Trouble concentrating on things, such as reading the newspaper or watching television: not at all 8. Moving or speaking so slowly that other people could have noticed. Or the opposite - being so fidgety or restless that you have been moving around a lot more than usual: not at all 9. Thoughts that you would be better off or of hurting yourself in some way: not at all Total score: 5 Depression Screening Interpretation: Positive Depression Screening Follow-up: Existing condition and In treatment Depression Screening Done: Yes 41070 - PHQ-9 Billing: Yes Source: Developed by Drs. David Boykin, Nita Romero, Nicholas Schneider and colleagues, with an educational kim from [employer]. Thrive Questionnaire Date Thrive assessed: 06/20/24 I am a: Patient What is your living situation today?: I have a steady place to live Within the past 12 months, did the food you bought not last and you didn't have the money to get more?: Never true Within the past 12 months, did you worry whether your food would run out before you got money to buy more?: Never true Do you have trouble paying for medicines?: No Do you have trouble getting transportation to medical appointments?: No Do you have trouble paying your heating and electricity bill?: No Do you have trouble taking care of your child, family member or friend?: No Do you have trouble with day-to-day activities such as bathing, preparing meals, shopping, managing finances, etc.?: I choose not to answer this question Are you currently unemployed and looking for a job?: No Are you interested in more education?: No Please select the resources that you would like help with: None Currently or been in a relationship where the following occur: No concerns reported THRIVE Score: 0 AUDIT C Alcohol Use Questionnaire (AUDIT-C) 1. How often do you have a drink containing alcohol?: Never 3. How often do you have six or more drinks on one occasion?: Never Total Score: 0 Score Reviewed/Action Taken: Yes MARIANA-7 AMB Questionnaire MARIANA-7 Date MARIANA - 7 assessed: 06/20/24 Feeling nervous, anxious, or on edge: 1 = Several days Not being able to stop or control worryin = Several days Worrying too much about different things: 1 = Several days Trouble relaxin = Not at all Being so restless that it is hard to sit still: 0 = Not at all Becoming easily annoyed or irritable: 1 = Several days Feeling afraid as if something awful might happen: 0 = Not at all Total MARIANA-7 score (0-4 normal; 5-9 mild; 10-14 moderate; 15-21 severe): 4 Source: Developed by Drs. David Boykin, Nita Romero, Nicholas Schneider and colleagues, with an educational kim from [employer]. MARIANA-7 Assessment Billing MARIANA-7 Assessment Tool: MARIANA-7 Assessment 19267 Physical exam (Primary Care) Vital Signs: Last Vital Signs Temp 96.9 F 06/20/24 15:25 Pulse 97 06/20/24 15:25 Resp 12 06/20/24 15:25 BP 117/67 06/20/24 15:25 Pulse Ox 98 06/20/24 15:25 Oxygen Delivery Method Room Air 06/20/24 15:25 BMI result Body Mass Index 32.9 BMI Assessment/Plan discussion: High BMI High, discussed plan: lifestyle Tobacco/Smoking Status: Tobacco use Status Tobacco use date assessed 06/20/24 06/20/24 15:26 Patient Tobacco Use Status Never used Tobacco 06/20/24 15:21 e-Cigarette/Vaping Use Never Used 06/20/24 15:21 PHQ-9: PHQ-9 Score PHQ-9: Total score 5 06/20/24 16:07 Depression Screening Interpretation: Positive Depression Screening Follow-up: Existing condition and In treatment Thrive Assessment: Date of Thrive Assessment Date Thrive assessed 06/20/24 06/20/24 15:21 Currently or been in a relationship where the following occur: No concerns reported Office Procedures Diabetic Foot Exam Details: abnormal G9226 - Diabetic Foot Exam Coding Level of Care Code Est Pt Level 5 (65215) Complex EM visit Add On G2211 Diagnoses Diabetes mellitus type 2 with complications E11.8 Diabetes type 2 with atherosclerosis of arteries of extremities E11.51; I70.209 Hyperlipidemia associated with type 2 diabetes mellitus E11.69; E78.5 Hypertension complicating diabetes E11.59; I15.2 Moderate episode of recurrent major depressive disorder F33.1 Major depression episode severity: moderate Microalbuminuria due to type 2 diabetes mellitus E11.29; R80.9 Neuropathy due to type 2 diabetes mellitus E11.40 Type 2 diabetes mellitus with morbid obesity E11.69; E66.01 CPT Codes Diabetic Foot Exam - CPT: G9226 - Diabetic Foot Exam ([id number]) Additional Codes MARIANA-7 Assessment Billing - MARIANA-7 Assessment Tool: MARIANA-7 Assessment 54669 ([id number]) PHQ-9 - 26733 - PHQ-9 Billing: Yes ([id number]) Assessment & Plan Assessment & Plan (1) Diabetes mellitus type 2 with complications: Code(s): E11.8 - Type 2 diabetes mellitus with unspecified complications Category: Medical (2) Diabetes type 2 with atherosclerosis of arteries of extremities: Comment: Based on physical exam. On statin. Monitor skin integrity Encouraged use of Lac-Hydrin Code(s): E11.51 - Type 2 diabetes mellitus with diabetic peripheral angiopathy without gangrene; I70.209 - Unspecified atherosclerosis of [place] arteries of extremities, unspecified extremity Category: Medical (3) Hyperlipidemia associated with type 2 diabetes mellitus: Comment: LDL goal is less than 70 on statin Code(s): E11.69 - Type 2 diabetes mellitus with other specified complication; E78.5 - Hyperlipidemia, unspecified Category: Medical (4) Hypertension complicating diabetes: Comment: blood pressure stable without medications at this time we will continue to monitor Code(s): E11.59 - Type 2 diabetes mellitus with other circulatory complications; I15.2 - Hypertension secondary to endocrine disorders Category: Medical (5) MDD (major depressive disorder), recurrent episode: Code(s): F33.9 - Major depressive disorder, recurrent, unspecified Category: Medical Qualifiers: Major depression episode severity: moderate Qualified Code(s): F33.1 - Major depressive disorder, recurrent, moderate (6) Microalbuminuria due to type 2 diabetes mellitus: Comment: Jardiance, continue repeat this in 3 months Code(s): E11.29 - Type 2 diabetes mellitus with other diabetic kidney complication; R80.9 - Proteinuria, unspecified Category: Medical (7) Neuropathy due to type 2 diabetes mellitus: Comment: Abnormal monofilament and vibratory sensations bilat Continue Lac-Hydrin cream b.i.d. to help with the thickened scaling skin. Diabetic foot education provided Code(s): E11.40 - Type 2 diabetes mellitus with diabetic neuropathy, unspecified Category: Medical (8) Type 2 diabetes mellitus with morbid obesity: Comment: BMI > 32.0 lifestyle modifications recommended Code(s): E11.69 - Type 2 diabetes mellitus with other specified complication; E66.01 - Morbid (severe) obesity due to excess calories Category: Medical Plan . Orders: Orders Hemoglobin A1c Today E11.29 - Type 2 diabetes mellitus with other diabetic kidney complication, E11.40 - Type 2 diabetes mellitus with diabetic neuropathy, unspecified, E11.51 - Type 2 diabetes mellitus with diabetic peripheral angiopathy without gangrene, E11.59 - Type 2 diabetes mellitus with other circulatory complications, E11.69 - Type 2 diabetes mellitus with other specified complication, E11.8 - Type 2 diabetes mellitus with unspecified complications, E66.01 - Morbid (severe) obesity due to excess calories, E78.5 - Hyperlipidemia, unspecified, F33.1 - Major depressive disorder, recurrent, moderate, I15.2 - Hypertension secondary to endocrine disorders, I70.209 - Unspecified atherosclerosis of [place] arteries of extremities, unspecified extremity, R80.9 - Proteinuria, unspecified Lipid Panel Today E11.29 - Type 2 diabetes mellitus with other diabetic kidney complication, E11.40 - Type 2 diabetes mellitus with diabetic neuropathy, unspecified, E11.51 - Type 2 diabetes mellitus with diabetic peripheral angiopathy without gangrene, E11.59 - Type 2 diabetes mellitus with other circulatory complications, E11.69 - Type 2 diabetes mellitus with other specified complication, E11.8 - Type 2 diabetes mellitus with unspecified complications, E66.01 - Morbid (severe) obesity due to excess calories, E78.5 - Hyperlipidemia, unspecified, F33.1 - Major depressive disorder, recurrent, moderate, I15.2 - Hypertension secondary to endocrine disorders, I70.209 - Unspecified atherosclerosis of [place] arteries of extremities, unspecified extremity, R80.9 - Proteinuria, unspecified Microalbumin, Random (w Creat) Today E11.29 - Type 2 diabetes mellitus with other diabetic kidney complication, E11.40 - Type 2 diabetes mellitus with diabetic neuropathy, unspecified, E11.51 - Type 2 diabetes mellitus with diabetic peripheral angiopathy without gangrene, E11.59 - Type 2 diabetes mellitus with other circulatory complications, E11.69 - Type 2 diabetes mellitus with other specified complication, E11.8 - Type 2 diabetes mellitus with unspecified complications, E66.01 - Morbid (severe) obesity due to excess calories, E78.5 - Hyperlipidemia, unspecified, F33.1 - Major depressive disorder, recurrent, moderate, I15.2 - Hypertension secondary to endocrine disorders, I70.209 - Unspecified atherosclerosis of [place] arteries of extremities, unspecified extremity, R80.9 - Proteinuria, unspecified Comprehensive Met. Panel Today E11.29 - Type 2 diabetes mellitus with other diabetic kidney complication, E11.40 - Type 2 diabetes mellitus with diabetic neuropathy, unspecified, E11.51 - Type 2 diabetes mellitus with diabetic peripheral angiopathy without gangrene, E11.59 - Type 2 diabetes mellitus with other circulatory complications, E11.69 - Type 2 diabetes mellitus with other specified complication, E11.8 - Type 2 diabetes mellitus with unspecified complications, E66.01 - Morbid (severe) obesity due to excess calories, E78.5 - Hyperlipidemia, unspecified, F33.1 - Major depressive disorder, recurrent, moderate, I15.2 - Hypertension secondary to endocrine disorders, I70.209 - Unspecified atherosclerosis of [place] arteries of extremities, unspecified extremity, R80.9 - Proteinuria, unspecified Medications: New pravastatin 80 mg PO BEDTIME 90 tabs 0RF Changed From aripiprazole (Abilify) 2 mg PO BEDTIME 30 tabs 2RF To aripiprazole (Abilify) 4 mg (2 x 2 mg) PO BEDTIME 60 tabs 2RF From glyburide 5 mg PO DAILY 90 tabs 0RF To glyburide 5 mg PO BID 180 tabs 0RF Refilled sertraline 100 mg PO DAILY 90 tabs 1RF Discontinued sertraline Discontinued Reason: Doctor's Order 25 mg PO DAILY 90 tabs 1RF pravastatin Discontinued Reason: Doctor's Order 40 mg PO BEDTIME 90 tabs 0RF
[2024-06-20 15:25] VITALS: BP 117/67; PULSE 97; RESP 12; TEMP 36.1; O2SAT 98; BMI 32.9
== END 2024-06-20 16:15 | disposition home or self-care (01) ==
PROVIDERS: PCP Nurse Practitioner Family; Visit Provider Nurse Practitioner Family
DX: E11.8 Type 2 diabetes mellitus with unspecified complications (principal); E11.51 Type 2 diabetes mellitus with diabetic peripheral angiopathy without gangrene; I70.209 Unspecified atherosclerosis of native arteries of extremities, unspecified extremity; E11.69 Type 2 diabetes mellitus with other specified complication; E78.5 Hyperlipidemia, unspecified; E11.59 Type 2 diabetes mellitus with other circulatory complications; I15.2 Hypertension secondary to endocrine disorders; F33.1 Major depressive disorder, recurrent, moderate; E11.29 Type 2 diabetes mellitus with other diabetic kidney complication; R80.9 Proteinuria, unspecified; E11.40 Type 2 diabetes mellitus with diabetic neuropathy, unspecified; E66.01 Morbid (severe) obesity due to excess calories; Z68.32 Body mass index [BMI] 32.0-32.9, adult

== ENCOUNTER → 2024-06-20 15:20 | Outpatient (BNVA) | payer OTHER, SELFPAY | PROVIDERS: PCP Nurse Practitioner Family; Visit Provider Nurse Practitioner Family | DX: I15.2 Hypertension secondary to endocrine disorders (principal); E11.51 Type 2 diabetes mellitus with diabetic peripheral angiopathy without gangrene; I70.209 Unspecified atherosclerosis of native arteries of extremities, unspecified extremity; E78.5 Hyperlipidemia, unspecified; E11.59 Type 2 diabetes mellitus with other circulatory complications; F33.1 Major depressive disorder, recurrent, moderate; E11.29 Type 2 diabetes mellitus with other diabetic kidney complication; R80.9 Proteinuria, unspecified; E11.40 Type 2 diabetes mellitus with diabetic neuropathy, unspecified; E66.01 Morbid (severe) obesity due to excess calories; Z68.32 Body mass index [BMI] 32.0-32.9, adult; Z71.3 Dietary counseling and surveillance | CPT/HCPCS: 96127; 99212 ==

== ENCOUNTER 2024-09-15 07:09 | Outpatient (REF) | payer OTHER, SELFPAY ==
[2024-09-15 10:15] LABS: Estimated Average Glucose 189 mg/dL; Hemoglobin A1c % 8.2 % (<6.0); Total Hemoglobin (HGBA1C) 3967.4556 umol/L
[2024-09-15 10:35] LABS: Alanine Aminotransferase 51 U/L (0-31); Albumin Level 4.6 g/dL (3.5-5.0); Alkaline Phosphatase 65 U/L (39-117); Anion Gap 12 (12-20); Aspartate Amino Transferase 39 U/L (5-31); Bilirubin Total 0.7 mg/dL (0.0-1.0); Blood Urea Nitrogen 21 mg/dL (9-16); Calcium 9.8 mg/dL (8.4-10.2); Carbon Dioxide 31 mmol/L (22-29); Chloride 103 mmol/L (96-108); Cholesterol 192 mg/dL (<200); Estimated Glomerular Filt Rate > 60; Glucose Random 219 mg/dL (60-115); HDL Cholesterol 45 mg/dL (>40); LDL Cholesterol Calculated 100 mg/dL (<100); Potassium 4.3 mmol/L (3.3-5.1); Sodium 142 mmol/L (135-145); Total Protein 7.1 g/dL (6.5-8.0); Triglycerides 236 mg/dL (<150)
[2024-09-15 12:26] LABS: Creatinine Urine 80.44 mg/dL
== END 2024-09-15 07:10 | disposition home or self-care (01) ==
LOC: HO.HMGCLDS 07:09
PROVIDERS: PCP Nurse Practitioner Family; Visit Provider Nurse Practitioner Family
DX: E11.51 Type 2 diabetes mellitus with diabetic peripheral angiopathy without gangrene (principal); I70.209 Unspecified atherosclerosis of native arteries of extremities, unspecified extremity; E78.5 Hyperlipidemia, unspecified; E11.59 Type 2 diabetes mellitus with other circulatory complications; I15.2 Hypertension secondary to endocrine disorders; F33.1 Major depressive disorder, recurrent, moderate; E11.29 Type 2 diabetes mellitus with other diabetic kidney complication; R80.9 Proteinuria, unspecified; E66.01 Morbid (severe) obesity due to excess calories
CPT/HCPCS: 36415; 80053; 80061; 82043; 82570; 83036

== ENCOUNTER 2024-10-16 14:45 | Outpatient (AMB) | payer OTHER, SELFPAY ==
--- NOTE | 2024-10-16 14:53 | A.OFFPC_ITS ---
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 Allergies aripiprazole (From Abilify) Adverse Reaction (Mild, Verified 10/16/24 15:11) HEADACHES/EYE PAIB bupropion (From Wellbutrin SR) Adverse Reaction (Mild, Verified 10/16/24 15:11) Insomnia Medication List - Last Reconciled 10/16/24 by BING Bazzi- ammonium lactate 12% 1 appl topical BID aripiprazole (Abilify) 4 mg (2 x 2 mg) PO BEDTIME empagliflozin (Jardiance) 25 mg PO QAM glyburide 5 mg PO BID metformin ER 2,000 mg (4 x 500 mg) PO QPM 90 days pravastatin 80 mg PO BEDTIME sertraline 100 mg PO DAILY Tobacco use date assessed: 10/16/24 Dental Screening Dental Screen Date: 10/16/24 Did you have a dental visit in the last 12 months?: Yes Did you have a dental problem in the last 6 months where you did not have access to dental care?: No Was dental information given to patient?: Patient has dentist HPI HPI Comments 2 History of Present Illness0 Details 59-year-old female MDD, obesity, hyperte nsion, diabetes type 2, microalbuminuria, elevated LFTs, hyperlipidemia, Herpes Health maintenance Colonoscopy 2017 Mammogram 07/2024 at [facility], [facility] Pap DEXA Diabetic eye exam 08/2024 rto 02/2025 Negative for DM retinopathy Here today for routine chronic dz mgmt: - Type 2 Diabetes Mellitus: - Treatment includes metformin, Jardiance, Glyburide. Was only taking this QD and not BID at time of lab draw. Has since started to take BID. - A1c 8.2%. - Hyperlipidemia: - Pravastatin 80mg, no improvement in lipid profile w/ increase, + wt gain ? r/t abilify which she is now off - Hypertension: - BP at goal w/o meds. + microalbumin though improving. on SGLT Mood - not well controlled. Messages to me on the portal: 06/2024 feeling irritable on sertraline 1 00mg and abilify 4mg self decrease sertraline 75 and cont abili 4mg 07/2024 please refer to my last message f or background information. On July 16 I started taking 75mg Sertraline and 4mg of Aripiprazole. I was on 100mg Sertraline and 2mg Aripiprazole. I going to go back to 100mg Sertraline because I have no energy. Plus, I going to switch back to 2mg Aripiprazole because I'm feeling unmotivated and exhausted. I have brain fog and occasional anxiety. We probably will need to discuss switching the type of medication I'm taking when we meet on September 20. I have started therapy, and my eye exam got moved to September 08. Abilify 4 mg caused daily MCLAIN and eye pain, decreased to 2mg, no more headaches. cont w/ eye pain. went to [facility] 08/2024 normal exam (report requested). Stopped abilify all togerther 10 days ago. Eyes are back to baseline. No mood change one way or the other. Remains on sertraline 100mg QD. Denies si/hi, admits to poorly controlled sx. Cont in counseling now bi-weekly. Physical Exam - Psychiatric- Cooperative, alert, and o riented. Mood and affect appropriate - Cardiovascular- RRR - Respiratory- Clear to auscultation elle aterally, dim throughout - Gastrointestinal- No tenderness upon a bdominal palpation, positive hepatomegaly, liver edge palpable - Neurological- Cranial nerves intact. B ilateral lower extremity checked for swelling; no edema noted. - Dermatological- Diabetic foot examined ; skin showed no significant deterioration, No edema bilateral lower extremities, decreased pedal pulses bilat, normal monofilament testing bilat, abnormal vibratory sensation bilat, skin thickened callused to feet bilat, scaly yet improved Results 08/2024 A1c 8.2%, cont w/ elevated LFT, n o improvement in lipids microalb better Plan Genesight testing to get idea of what meds she would respond well too Kit ordered today to be mailed to her asked she send me a portal message once complete cont sertraline 100mg at this time along w/ counseling Add Zetia 10mg to prav. 80 mg for lipid control Cont all other meds as prescribed - RTO 3 months w/ repeat labs, sooner [place] N Consent Patient was informed and verbally consented to the use of an ambient scribe for clinic note documentation during this visit. Total time spent caring for the patient today was 45 minutes. This includes time spent before the visit reviewing the chart, time spent during the visit, and time spent after the visit on documentation, reviewing laboratory results, diagnostic imaging, medications, performing a medically necessary evaluation, counseling on diagnoses, care coordination, ordering appropriate tests, ordering appropriate medications, review of tests performed by other providers, reporting test results with the patient, communication with other healthcare providers. [facility] Medical History (Updated 10/16/24 @ 15:06 by [facility] No pertinent past medical history Surgical History (Updated 06/15/23 @ 15:48 by Tatianna Jang [facility]) No pertinent past surgical history Social History (Updated 06/15/23 @ 15:46 by Tatianna Jang [facility]) Household Members: Other Both parents involved: No Caregiver staying overnight: No Housing: Apartment Are you a primary manager progressive care to a significant other at home: No Do you presently have visiting nurse or other home services: No 75 years or older and lives alone: No Alcohol intake: never Patient Tobacco Use Status: Never used Tobacco e-Cigarette/Vaping Use: Never Used Second Hand Smoke Exposure: No service: No Current occupational status: unemployed Current occupational exposures/hazards: No Sexual orientation: Unable to collect Gender identity: Unable to collect Cognitive needs: No Hearing needs: No Vision needs: Yes Questionnaire Thrive Questionnaire Date Thrive assessed: 06/20/24 I am a: Patient What is your living situation today?: I have a steady place to live Within the past 12 months, did the food you bought not last and you didn't have the money to get more?: Never true Within the past 12 months, did you worry whether your food would run out before you got money to buy more?: Never true Do you have trouble paying for medicines?: No Do you have trouble getting transportation to medical appointments?: No Do you have trouble paying your heating and electricity bill?: No Do you have trouble taking care of your child, family member or friend?: No Do you have trouble with day-to-day activities such as bathing, preparing meals, shopping, managing finances, etc.?: I choose not to answer this question Are you currently unemployed and looking for a job?: No Are you interested in more education?: No Please select the resources that you would like help with: None Currently or been in a relationship where the following occur: No concerns reported THRIVE Score: 0 AUDIT C Alcohol Use Questionnaire (AUDIT-C) 2. How many drinks containing alcohol do you have on a typical day when you are drinking?: 1 or 2 Total Score: 0 MARIANA-7 AMB Questionnaire MARIANA-7 Date MARIANA - 7 assessed: 06/20/24 Source: Developed by Drs. David Boykin, Nita Romero, Nicholas Schneider and colleagues, with an educational kim from [employer]. Physical exam (Primary Care) Vital Signs: Last Vital Signs Temp 97.2 F 10/16/24 14:57 Pulse 102 H 10/16/24 14:57 Resp 13 10/16/24 14:57 BP 124/72 10/16/24 14:57 Pulse Ox 95 10/16/24 14:57 Oxygen Delivery Method Room Air 10/16/24 14:57 BMI result Body Mass Index 34.6 BMI Assessment/Plan discussion: High BMI High, discussed plan: lifestyle Tobacco/Smoking Status: Tobacco use Status Tobacco use date assessed 10/16/24 10/16/24 14:56 Patient Tobacco Use Status Never used Tobacco 10/16/24 14:53 e-Cigarette/Vaping Use Never Used 10/16/24 14:53 Thrive Assessment: Date of Thrive Assessment Date Thrive assessed 06/20/24 10/16/24 14:53 Currently or been in a relationship where the following occur: No concerns reported Office Procedures Diabetic Foot Exam G9226 - Diabetic Foot Exam Results Reviewed Results Reviewed: Coding Level of Care Code Est Pt Level 5 (67786) Complex EM visit Add On G2211 Diagnoses Moderate episode of recurrent major depressive disorder F33.1 Major depression episode severity: moderate Hypertension complicating diabetes E11.59; I15.2 Hyperlipidemia associated with type 2 diabetes mellitus E11.69; E78.5 Diabetes mellitus type 2 with complications E11.8 Type 2 diabetes mellitus with morbid obesity E11.69; E66.01 Microalbuminuria due to type 2 diabetes mellitus E11.29; R80.9 Diabetes type 2 with atherosclerosis of arteries of extremities E11.51; I70.209 Neuropathy due to type 2 diabetes mellitus E11.40 Obesity (BMI 30-39.9) E66.9 CPT Codes Diabetic Foot Exam - CPT: G9226 - Diabetic Foot Exam ([id number]) Assessment & Plan Assessment & Plan (1) MDD (major depressive disorder), recurrent episode: Code(s): F33.9 - Major depressive disorder, recurrent, unspecified Category: Medical Qualifiers: Major depression episode severity: moderate Qualified Code(s): F33.1 - Major depressive disorder, recurrent, moderate (2) Hypertension complicating diabetes: Comment: blood pressure stable without medications at this time we will continue to monitor Code(s): E11.59 - Type 2 diabetes mellitus with other circulatory complications; I15.2 - Hypertension secondary to endocrine disorders Category: Medical (3) Hyperlipidemia associated with type 2 diabetes mellitus: Comment: LDL goal is less than 70 on statin Code(s): E11.69 - Type 2 diabetes mellitus with other specified complication; E78.5 - Hyperlipidemia, unspecified Category: Medical (4) Diabetes mellitus type 2 with complications: Code(s): E11.8 - Type 2 diabetes mellitus with unspecified complications Category: Medical (5) Type 2 diabetes mellitus with morbid obesity: Comment: BMI > 32.0 lifestyle modifications recommended Code(s): E11.69 - Type 2 diabetes mellitus with other specified complication; E66.01 - Morbid (severe) obesity due to excess calories Category: Medical (6) Microalbuminuria due to type 2 diabetes mellitus: Comment: Jardiance, continue repeat this in 3 months Code(s): E11.29 - Type 2 diabetes mellitus with other diabetic kidney complication; R80.9 - Proteinuria, unspecified Category: Medical (7) Diabetes type 2 with atherosclerosis of arteries of extremities: Comment: Based on physical exam. On statin. Monitor skin integrity Encouraged use of Lac-Hydrin Code(s): E11.51 - Type 2 diabetes mellitus with diabetic peripheral angiopathy without gangrene; I70.209 - Unspecified atherosclerosis of [place] arteries of extremities, unspecified extremity Category: Medical (8) Neuropathy due to type 2 diabetes mellitus: Comment: Abnormal monofilament and vibratory sensations bilat Continue Lac-Hydrin cream b.i.d. to help with the thickened scaling skin. Diabetic foot education provided Code(s): E11.40 - Type 2 diabetes mellitus with diabetic neuropathy, unspecified Category: Medical (9) Obesity (BMI 30-39.9): Code(s): E66.9 - Obesity, unspecified Category: Medical Plan . Orders: Orders 2 Hemoglobin A1c 3 Months E11.29 - Type 2 diabetes mellitus with other diabetic kidney complication, E11.51 - Type 2 diabetes mellitus with diabetic peripheral angiopathy without gangrene, E11.59 - Type 2 diabetes mellitus with other circulatory complications, E11.69 - Type 2 diabetes mellitus with other specified complication, E11.8 - Type 2 diabetes mellitus with unspecified complications, E66.01 - Morbid (severe) obesity due to excess calories, E78.5 - Hyperlipidemia, unspecified, I15.2 - Hypertension secondary to endocrine disorders, I70.209 - Unspecified atherosclerosis of [place] arteries of extremities, unspecified extremity, R80.9 - Proteinuria, unspecified Lipid Panel 3 Months E11.29 - Type 2 diabetes mellitus with other diabetic kidney complication, E11.51 - Type 2 diabetes mellitus with diabetic peripheral angiopathy without gangrene, E11.59 - Type 2 diabetes mellitus with other circulatory complications, E11.69 - Type 2 diabetes mellitus with other specified complication, E11.8 - Type 2 diabetes mellitus with unspecified complications, E66.01 - Morbid (severe) obesity due to excess calories, E78.5 - Hyperlipidemia, unspecified, I15.2 - Hypertension secondary to endocrine disorders, I70.209 - Unspecified atherosclerosis of [place] arteries of extremities, unspecified extremity, R80.9 - Proteinuria, unspecified Comprehensive Met. Panel 3 Months E11.29 - Type 2 diabetes mellitus with other diabetic kidney complication, E11.51 - Type 2 diabetes mellitus with diabetic peripheral angiopathy without gangrene, E11.59 - Type 2 diabetes mellitus with other circulatory complications, E11.69 - Type 2 diabetes mellitus with other specified complication, E11.8 - Type 2 diabetes mellitus with unspecified complications, E66.01 - Morbid (severe) obesity due to excess calories, E78.5 - Hyperlipidemia, unspecified, I15.2 - Hypertension secondary to endocrine disorders, I70.209 - Unspecified atherosclerosis of [place] arteries of extremities, unspecified extremity, R80.9 - Proteinuria, unspecified Microalbumin, Random (w Creat) 3 Months E11.29 - Type 2 diabetes mellitus with other diabetic kidney complication, E11.51 - Type 2 diabetes mellitus with diabetic peripheral angiopathy without gangrene, E11.59 - Type 2 diabetes mellitus with other circulatory complications, E11.69 - Type 2 diabetes mellitus with other specified complication, E11.8 - Type 2 diabetes mellitus with unspecified complications, E66.01 - Morbid (severe) obesity due to excess calories, E78.5 - Hyperlipidemia, unspecified, I15.2 - Hypertension secondary to endocrine disorders, I70.209 - Unspecified atherosclerosis of [place] arteries of extremities, unspecified extremity, R80.9 - Proteinuria, unspecified Vitamin B12 and Folate 3 Months E11.29 - Type 2 diabetes mellitus with other diabetic kidney complication, E11.51 - Type 2 diabetes mellitus with diabetic peripheral angiopathy without gangrene, E11.59 - Type 2 diabetes mellitus with other circulatory complications, E11.69 - Type 2 diabetes mellitus with other specified complication, E11.8 - Type 2 diabetes mellitus with unspecified complications, E66.01 - Morbid (severe) obesity due to excess calories, E78.5 - Hyperlipidemia, unspecified, I15.2 - Hypertension secondary to endocrine disorders, I70.209 - Unspecified atherosclerosis of [place] arteries of extremities, unspecified extremity, R80.9 - Proteinuria, unspecified Medications: New 2 ezetimibe (Zetia) 10 mg PO DAILY 90 tabs 2RF Discontinued 2 aripiprazole (Abilify) Discontinued Reason: Patient no longer taking 4 mg (2 x 2 mg) PO BEDTIME 60 tabs 2RF
[2024-10-16 14:57] VITALS: BP 124/72; PULSE 102; RESP 13; TEMP 36.2; O2SAT 95; BMI 34.6
[2024-10-16 15:32] VITALS: PULSE 90
== END 2024-10-16 15:40 | disposition home or self-care (01) ==
LOC: HO.HMCFM 14:45
PROVIDERS: PCP Nurse Practitioner Family; Visit Provider Nurse Practitioner Family
DX: E11.69 Type 2 diabetes mellitus with other specified complication (principal); F33.1 Major depressive disorder, recurrent, moderate; E11.59 Type 2 diabetes mellitus with other circulatory complications; E11.8 Type 2 diabetes mellitus with unspecified complications; E66.01 Morbid (severe) obesity due to excess calories; E11.29 Type 2 diabetes mellitus with other diabetic kidney complication; E11.51 Type 2 diabetes mellitus with diabetic peripheral angiopathy without gangrene; E11.40 Type 2 diabetes mellitus with diabetic neuropathy, unspecified; I15.2 Hypertension secondary to endocrine disorders; E78.5 Hyperlipidemia, unspecified; R80.9 Proteinuria, unspecified; I70.209 Unspecified atherosclerosis of native arteries of extremities, unspecified extremity

== ENCOUNTER → 2024-10-16 14:45 | Outpatient (BNVA) | payer OTHER, SELFPAY | PROVIDERS: PCP Nurse Practitioner Family; Visit Provider Nurse Practitioner Family | DX: F33.1 Major depressive disorder, recurrent, moderate (principal); R80.9 Proteinuria, unspecified; E78.5 Hyperlipidemia, unspecified; E11.59 Type 2 diabetes mellitus with other circulatory complications; I15.2 Hypertension secondary to endocrine disorders; E11.69 Type 2 diabetes mellitus with other specified complication; E11.51 Type 2 diabetes mellitus with diabetic peripheral angiopathy without gangrene; I70.209 Unspecified atherosclerosis of native arteries of extremities, unspecified extremity; E11.40 Type 2 diabetes mellitus with diabetic neuropathy, unspecified; E66.9 Obesity, unspecified; Z68.34 Body mass index [BMI] 34.0-34.9, adult | CPT/HCPCS: 99212 ==

== ENCOUNTER 2024-11-06 16:04 | Outpatient (AMB) | payer OTHER, SELFPAY ==
--- NOTE | 2024-11-06 16:04 | A.OFFPC_ITS ---
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 Allergies aripiprazole (From Abilify) Adverse Reaction (Mild, Verified 11/06/24 16:46) HEADACHES/EYE PAIB bupropion (From Wellbutrin SR) Adverse Reaction (Mild, Verified 11/06/24 16:46) Insomnia Medication List - Last Reconciled 11/06/24 by Roxanne Beckett, BING- ammonium lactate 12% 1 appl topical BID empagliflozin (Jardiance) 25 mg PO QAM ezetimibe (Zetia) 10 mg PO DAILY glyburide 5 mg PO BID metformin ER 2,000 mg (4 x 500 mg) PO QPM 90 days pravastatin 80 mg PO BEDTIME sertraline 100 mg PO DAILY Tobacco use date assessed: 10/16/24 Dental Screening Dental Screen Date: 10/16/24 HPI HPI Comments History of Present Illness Details 59-year-old female MDD, obesity, hyperte nsion, diabetes type 2, microalbuminuria, elevated LFTs, hyperlipidemia, Herpes - The patient is a 59-year-old female pr esenting with ongoing depressive symptoms. FU today after completing [employer]) testing. Results reviewed in detail w/ her today; A copy was provided to her, too. - Sertraline shows moderate gene-drug in teraction, reducing its efficacy for this patient. - Previous use of Abilify and Wellbutrin was ineffective despite normal metabolism. - Reports excessive fatigue. - Non-smoker, impacting metabolism of ce rtain medications. Mood - not well controlled. Messages to me on the portal: 06/2024 feeling irritable on sertraline 1 00mg and abilify 4mg self decrease sertraline 75 and cont abili 4mg 07/2024 please refer to my last message f or background information. On July 16 I started taking 75mg Sertraline and 4mg of Aripiprazole. I was on 100mg Sertraline and 2mg Aripiprazole. I going to go back to 100mg Sertraline because I have no energy. Plus, I going to switch back to 2mg Aripiprazole because I'm feeling unmotivated and exhausted. I have brain fog and occasional anxiety. We probably will need to discuss switching the type of medication I'm taking when we meet on September 20. I have started therapy, and my eye exam got moved to September 08. Abilify 4 mg caused daily MCLAIN and eye pain, decreased to 2mg, no more headaches. cont w/ eye pain. went to [facility] 08/2024 normal exam (report requested). Stopped abilify all togerther 10 days ago. Eyes are back to baseline. No mood change one way or the other. Remains on sertraline 100mg QD. Denies si/hi, admits to poorly controlled sx. Cont in counseling now bi-weekly. Plan Cont sertraline 100mg Start Vyvanse 30mg QAm goal is to help low mood, energy, anhedonia RTO 12/2024 to f/u sooner PRN has crisis info on hand, made aware to contact if any issues w/ RX at pharmacy. All questions answered. Telehealth Attestation The evaluation and management of this patient were conducted via telehealth, and all documented information is accurate as per the discussion. The patient has been explained that this is an interactive (audio/video) telehealth encounter and what that consists of. The patient understands and wi shes to proceed. [employer] platform was used. Total time spent caring for the patient today was 23 minutes. This includes time spent before the visit reviewing the chart, time spent during the visit, and time spent after the visit on documentation, reviewing laboratory results, diagnostic imaging, medications, performing a medically necessary evaluation, counseling on diagnoses, care coordination, ordering appropriate tests, ordering appropriate medications, review of tests performed by other providers, reporting test results with the patient, communication with other healthcare providers. [facility] Medical History (Updated 10/17/24 @ 14:44 by Roxanne Beckett [facility]) No pertinent past medical history Surgical History (Updated 06/15/23 @ 15:48 by Tatianna Jang CMA) No pertinent past surgical history Social History (Updated 06/15/23 @ 15:46 by Tatianna Jang CMA) Household Members: Other Both parents involved: No Caregiver staying overnight: No Housing: Apartment Are you a primary health care recruiter to a significant other at home: No Do you presently have visiting nurse or other home services: No 75 years or older and lives alone: No Alcohol intake: never Patient Tobacco Use Status: Never used Tobacco e-Cigarette/Vaping Use: Never Used Second Hand Smoke Exposure: No service: No Current occupational status: unemployed Current occupational exposures/hazards: No Sexual orientation: Unable to collect Gender identity: Unable to collect Cognitive needs: No Hearing needs: No Vision needs: Yes Questionnaire Thrive Questionnaire Date Thrive assessed: 06/20/24 MARIANA-7 AMB Questionnaire MARIANA-7 Date MARIANA - 7 assessed: 06/20/24 Source: Developed by Drs. David Boykin, Nita Romero, Nicholas Schneider and colleagues, with an educational kim from [employer]. Physical exam (Primary Care) Tobacco/Smoking Status: Tobacco use Status Tobacco use date assessed 10/16/24 11/06/24 16:05 Patient Tobacco Use Status Never used Tobacco 11/06/24 16:05 e-Cigarette/Vaping Use Never Used 11/06/24 16:05 Thrive Assessment: Date of Thrive Assessment Date Thrive assessed 06/20/24 11/06/24 16:05 Telehealth Telehealth Telehealth Platform: [facility] Location of provider rendering services: practice address Location of patient: address on file Patient Identification confirmed using: Name, : Yes Telehealth method: voice only Patient verbally consented to treatment: Yes Patient verbally consented to billing insurance company: Yes Patient informed of any privacy concerns related to visit: Yes Minutes spent on Phone/Video with Pt.: 9 Coding Level of Care Code Tele Est Pt Level 3 (40866) Complex EM visit Add On G2211 Diagnoses Moderate episode of recurrent major depressive disorder F33.1 Major depression episode severity: moderate Assessment & Plan Assessment & Plan (1) MDD (major depressive disorder), recurrent episode: Code(s): F33.9 - Major depressive disorder, recurrent, unspecified Category: Medical Qualifiers: Major depression episode severity: moderate Qualified Code(s): F33.1 - Major depressive disorder, recurrent, moderate Plan . Medications: New lisdexamfetamine (Vyvanse) Partial Fill upon patient request. 30 mg PO DAILY 90 caps 0RF
== END 2024-11-06 17:12 | disposition home or self-care (01) ==
LOC: HO.HMCFM 16:04
PROVIDERS: PCP Nurse Practitioner Family; Visit Provider Nurse Practitioner Family
DX: F33.1 Major depressive disorder, recurrent, moderate (principal)

== ENCOUNTER 2025-01-01 15:17 | Outpatient (AMB) | payer OTHER, SELFPAY ==
--- NOTE | 2025-01-01 15:18 | A.OFFPC_ITS ---
Vital Signs 01/01/25 16:07 01/01/25 16:07 Height 5 ft 7 in Weight 215 lb Intake Visit Reasons: REVIEW GENESIGHT RESULTS Intake Note: Telehealth to review genesight results and go over new med. Action Finisher Required: No Allergies aripiprazole (From Abilify) Adverse Reaction (Mild, Verified 01/01/25 15:59) HEADACHES/EYE PAIB bupropion (From Wellbutrin SR) Adverse Reaction (Mild, Verified 01/01/25 15:59) Insomnia Medication List - Last Reconciled 01/01/25 by GENARO BazziP- ammonium lactate 12% 1 appl topical BID empagliflozin (Jardiance) 25 mg PO QAM ezetimibe (Zetia) 10 mg PO DAILY glyburide 5 mg PO BID lisdexamfetamine (Vyvanse) 30 mg PO DAILY metformin ER 2,000 mg (4 x 500 mg) PO QPM 90 days pravastatin 80 mg PO BEDTIME sertraline 100 mg PO DAILY Tobacco use date assessed: 01/01/25 Dental Screening Dental Screen Date: 01/01/25 Did you have a dental visit in the last 12 months?: Yes Did you have a dental problem in the last 6 months where you did not have access to dental care?: No Was dental information given to patient?: Patient has dentist HPI HPI Comments History of Present Illness Details 59-year-old female MDD, obesity, hyperte nsion, diabetes type 2, microalbuminuria, elevated LFTs, hyperlipidemia, Herpes History of Present Illness - The patient is a 59-year-old female pr esenting with follow-up for medication management. - Currently on Vyvanse for the managemen t of major depressive disorder. Taking in the AM w/ Sertraline. Denies SI/HI - Reports managed mood improvements; inc reased energy. Wt loss. - Reports symptoms indicative of gastroe sophageal reflux disease. Taking lots of tums. Unsure if diet related or med related. - Reports insomnia since starting the me d and headaches - Has been taking for 4 weeks Review of Systems - Psychiatric: Reports depression manage ment with medication. - Gastrointestinal: Reports symptoms sug gestive of acid reflux. - Musculoskeletal: Denies significant we ight gain. - Neurological: Reports headaches, insom maggie. Physical Exam Limited physical exam was conducted Awake alert NAD Speaking in full sentences Engaging, appropriate Mood and affect appropriate Results GeneSight testing reviewed w/ her again today. Assessment and Plan 1. Major Depressive Disorder - Continue Vyvanse 30mg ; monitor mood a nd energy levels. Consider sending to mail away pharmacy once dose est to reduce copay ; cont sertraline and counseling. 2. Gastroesophageal Reflux Disease (susp ected) - not listed side effect of vyvanse. ? food. Avoid triggers - Famotidine 20mg once daily at bedtime for control of symptoms. Limit tums as this effects med absorption 3. Insomnia - Monitor insomnia related to stimulant medication. Headaches may be related to lack of sleep and not med reaction RTO as scheduled in Jan, sooner as needed. Patient was given time to ask questions. All questions were answered to their satisfaction. Telehealth Attestation The visit was conducted via telehealth. All documented details were accurately reported based on the conversation. The patient has been explained that this is an interactive (audio/video) telehealth encounter and what that consists of. The patient understands and wishes to proceed. [employer] platform was used. Total time spent caring for the patient today was 21 minutes. This includes time spent before the visit reviewing the chart, time spent during the visit, and time spent after the visit on documentation, reviewing laboratory results, diagnostic imaging, medications, performing a medically necessary evaluation, counseling on diagnoses, care coordination, ordering appropriate tests, ordering appropriate medications, review of tests performed by other providers, reporting test results with the patient, communication with other healthcare providers. [facility] Medical History (Updated 01/01/25 @ 17:45 by [facility] No pertinent past medical history Surgical History (Updated 06/15/23 @ 15:48 by Tatianna Jang CMA) No pertinent past surgical history Social History (Updated 06/15/23 @ 15:46 by Tatianna Jang CMA) Household Members: Other Both parents involved: No Caregiver staying overnight: No Housing: Apartment Are you a primary progressive care nurse to a significant other at home: No Do you presently have visiting nurse or other home services: No 75 years or older and lives alone: No Alcohol intake: never Patient Tobacco Use Status: Never used Tobacco e-Cigarette/Vaping Use: Never Used Second Hand Smoke Exposure: No service: No Current occupational status: unemployed Current occupational exposures/hazards: No Sexual orientation: Unable to collect Gender identity: Unable to collect Cognitive needs: No Hearing needs: No Vision needs: Yes Questionnaire Thrive Questionnaire Date Thrive assessed: 06/20/24 I am a: Patient What is your living situation today?: I have a steady place to live Within the past 12 months, did the food you bought not last and you didn't have the money to get more?: Never true Within the past 12 months, did you worry whether your food would run out before you got money to buy more?: Never true Do you have trouble paying for medicines?: No Do you have trouble getting transportation to medical appointments?: No Do you have trouble paying your heating and electricity bill?: No Do you have trouble taking care of your child, family member or friend?: No Do you have trouble with day-to-day activities such as bathing, preparing meals, shopping, managing finances, etc.?: I choose not to answer this question Are you currently unemployed and looking for a job?: No Are you interested in more education?: No Please select the resources that you would like help with: None Currently or been in a relationship where the following occur: No concerns reported THRIVE Score: 0 MARIANA-7 AMB Questionnaire MARIANA-7 Date MARIANA - 7 assessed: 06/20/24 Source: Developed by Drs. David Boykin, Nita Romero, Nicholas Schneider and colleagues, with an educational kim from [employer]. Physical exam (Primary Care) Tobacco/Smoking Status: Tobacco use Status Tobacco use date assessed 01/01/25 01/01/25 15:21 Patient Tobacco Use Status Never used Tobacco 01/01/25 15:21 e-Cigarette/Vaping Use Never Used 01/01/25 15:21 Thrive Assessment: Date of Thrive Assessment Date Thrive assessed 06/20/24 01/01/25 15:21 Currently or been in a relationship where the following occur: No concerns reported Telehealth Telehealth [facility] Location of provider rendering services: practice address Location of patient: address on file Patient Identification confirmed using: Name, : Yes Telehealth method: voice only Patient verbally consented to treatment: Yes Patient verbally consented to billing insurance company: Yes Patient informed of any privacy concerns related to visit: Yes Minutes spent on Phone/Video with Pt.: 13 Coding Level of Care Code Tele Est Pt Level 3 (20785) Complex EM visit Add On G2211 Diagnoses Moderate episode of recurrent major depressive disorder F33.1 Major depression episode severity: moderate GERD (gastroesophageal reflux disease) K21.9 Insomnia G47.00 Persistent headaches R51.9 Assessment & Plan Assessment & Plan (1) MDD (major depressive disorder), recurrent episode: Code(s): F33.9 - Major depressive disorder, recurrent, unspecified Category: Medical Qualifiers: Major depression episode severity: moderate Qualified Code(s): F33.1 - Major depressive disorder, recurrent, moderate (2) GERD (gastroesophageal reflux disease): Code(s): K21.9 - Gastro-esophageal reflux disease without esophagitis Category: Medical (3) Insomnia: Code(s): G47.00 - Insomnia, unspecified Category: Medical (4) Persistent headaches: Code(s): R51.9 - Headache, unspecified Category: Medical Plan . Medications: New famotidine (Pepcid) 20 mg PO BEDTIME 90 tabs 0RF
== END 2025-01-01 16:14 | disposition home or self-care (01) ==
LOC: HO.HMCFM 15:17
PROVIDERS: PCP Nurse Practitioner Family; Visit Provider Nurse Practitioner Family
DX: F33.1 Major depressive disorder, recurrent, moderate (principal); K21.9 Gastro-esophageal reflux disease without esophagitis; G47.00 Insomnia, unspecified; R51.9 Headache, unspecified

== ENCOUNTER 2025-01-23 08:03 | Outpatient (REF) | payer OTHER, SELFPAY ==
[2025-01-23 10:56] LABS: Microalbum/Creatinine Ratio Ur 17.9 ug/mg cr (<30)
[2025-01-23 11:40] LABS: Alanine Aminotransferase 41 U/L (0-31); Albumin Level 4.8 g/dL (3.5-5.0); Alkaline Phosphatase 56 U/L (39-117); Anion Gap 12 (12-20); Aspartate Amino Transferase 34 U/L (5-31); Blood Urea Nitrogen 29 mg/dL (9-16); Calcium 9.5 mg/dL (8.4-10.2); Carbon Dioxide 29 mmol/L (22-29); Chloride 107 mmol/L (96-108); Cholesterol 169 mg/dL (<200); Estimated Glomerular Filt Rate > 60; HDL Cholesterol 46 mg/dL (>40); Potassium 4.2 mmol/L (3.3-5.1); Sodium 144 mmol/L (135-145); Total Protein 7.2 g/dL (6.5-8.0); Triglycerides 183 mg/dL (<150)
[2025-01-23 11:53] LABS: Folate 8.5 ng/mL (> or = 4.0); Vitamin B12 579 pg/mL (200-900)
== END 2025-01-23 08:04 | disposition home or self-care (01) ==
LOC: HO.HMGCLDS 08:03
PROVIDERS: PCP Nurse Practitioner Family; Visit Provider Nurse Practitioner Family
DX: E11.51 Type 2 diabetes mellitus with diabetic peripheral angiopathy without gangrene (principal); I70.209 Unspecified atherosclerosis of native arteries of extremities, unspecified extremity; E11.59 Type 2 diabetes mellitus with other circulatory complications; I15.2 Hypertension secondary to endocrine disorders; E11.69 Type 2 diabetes mellitus with other specified complication; E78.5 Hyperlipidemia, unspecified; E11.29 Type 2 diabetes mellitus with other diabetic kidney complication; R80.9 Proteinuria, unspecified; E66.01 Morbid (severe) obesity due to excess calories
CPT/HCPCS: 36415; 80053; 80061; 82043; 82570; 82607; 82746; 83036

== ENCOUNTER 2025-01-24 14:50 | Outpatient (AMB) | payer OTHER, SELFPAY ==
--- NOTE | 2025-01-24 14:52 | MHC.PC.OV ---
Vital Signs 01/24/25 14:55 Height 5 ft 7 in Weight 212 lb BMI 33.2 BP 118/68 Blood Pressure Location Rt brachial Position Sitting Respiration 12 Pulse 76 Pulse Source Pulse Oximeter Temp 97.3 F Temp Source Oral Pulse Oximetry (%) 98 Oxygen Delivery Method Room Air Intake Visit Reasons: 3-4 mo routine fu labs 1 week before 30min Intake Note: Routine follow up on labs Supervisor Tumblers Required: No Allergies aripiprazole (From Abilify) Adverse Reaction (Mild, Verified 01/24/25 14:53) HEADACHES/EYE PAIB bupropion (From Wellbutrin SR) Adverse Reaction (Mild, Verified 01/24/25 14:53) Insomnia Medication List - Last Reconciled 01/24/25 by BING Bazzi- ammonium lactate 12% 1 appl topical BID empagliflozin (Jardiance) 25 mg PO QAM ezetimibe (Zetia) 10 mg PO DAILY famotidine (Pepcid) 20 mg PO BEDTIME glyburide 5 mg PO BID lisdexamfetamine (Vyvanse) 30 mg PO DAILY metformin ER 2,000 mg (4 x 500 mg) PO QPM 90 days pravastatin 80 mg PO BEDTIME sertraline 100 mg PO DAILY Tobacco use date assessed: 01/24/25 Dental Screening Dental Screen Date: 01/24/25 Did you have a dental visit in the last 12 months?: Yes Did you have a dental problem in the last 6 months where you did not have access to dental care?: No Was dental information given to patient?: Patient has dentist HPI HPI Comments History of Present Illness Details 59-year-old female MDD, obesity, hypertension, diabetes type 2, microalbuminuria, elevated LFTs, hyperlipidemia, Herpes Health maintenance Colonoscopy 2017 Mammogram 07/2024 at [facility], [facility] Pap DEXA Diabetic eye exam 08/2024 rto 02/2025 Negative for DM retinopathy Flu shot 01/24/25 Here today for routine chronic dz mgmt: - Type 2 Diabetes Mellitus: - Treatment includes metformin, Jardiance, Glyburide. A1c improved - Hyperlipidemia: - Pravastatin 80mg + Zetia has improved lipid profile - Hypertension: - BP at goal w/o meds. No longer has microalbumin though improving. on SGLT Will be losing job end of January This has not helped her mood; mood is better w/ Vyvanse. Likes this and wishes to increase. Cont in counseling. Denies SI/HI. Headaches are better Acid reflux is better w/ pepcid takes 1-2 Intentional wt loss Physical Exam - Psychiatric- Cooperative, alert, and oriented. Mood and affect appropriate - Cardiovascular- RRR - Respiratory- Clear to auscultation bilaterally, dim throughout - Gastrointestinal- No tenderness upon abdominal palpation, positive hepatomegaly, liver edge palpable - Neurological- Cranial nerves intact. Bilateral lower extremity checked for swelling; no edema noted. - Dermatological- Diabetic foot examined; skin showed no significant deterioration, No edema bilateral lower extremities, decreased pedal pulses bilat, normal monofilament testing bilat, normal vibratory sensation bilat, skin thickened callused to feet bilat, scaly yet improved Results as below... much better!!! Plan Doing great Flu given today Increase vyvanse from 30 to 40mg QD. Increase pepcid from 20mg QD to BID, ok to take PRN Cont all other meds RTO via phone in 6 -8 weeks to fu on Vyvance increase; 3 months w/ labs for routine visit. Consent Patient was informed and verbally consented to the use of an ambient scribe for clinic note documentation during this visit. Total time spent caring for the patient today was 45 minutes. This includes time spent before the visit reviewing the chart, time spent during the visit, and time spent after the visit on documentation, reviewing laboratory results, diagnostic imaging, medications, performing a medically necessary evaluation, counseling on diagnoses, care coordination, ordering appropriate tests, ordering appropriate medications, review of tests performed by other providers, reporting test results with the patient, communication with other healthcare providers. [facility] Medical History (Updated 01/24/25 @ 17:10 [facility] No pertinent past medical history Surgical History (Updated 06/15/23 @ 15:48 by Tatianna Jang CMA) No pertinent past surgical history Social History (Updated 06/15/23 @ 15:46 by Tatianna Jang CMA) Household Members: Other Both parents involved: No Caregiver staying overnight: No Housing: Apartment Are you a primary home care associate to a significant other at home: No Do you presently have visiting nurse or other home services: No 75 years or older and lives alone: No Alcohol intake: never Patient Tobacco Use Status: Never used Tobacco e-Cigarette/Vaping Use: Never Used Second Hand Smoke Exposure: No service: No Current occupational status: unemployed Current occupational exposures/hazards: No Sexual orientation: Unable to collect Gender identity: Unable to collect Cognitive needs: No Hearing needs: No Vision needs: Yes Questionnaire PHQ-9 Over the last 2 weeks, how often have you been bothered by any of the following problems? 1. Little interest or pleasure in doing things: not at all 2. Feeling down, depressed, or hopeless: not at all 3. Trouble falling or staying asleep, or sleeping too much: not at all 4. Feeling tired or having little energy: not at all 5. Poor appetite or overeating: not at all 6. Feeling bad about yourself - or that you are a failure or have let yourself or your family down: not at all 7. Trouble concentrating on things, such as reading the newspaper or watching television: not at all 8. Moving or speaking so slowly that other people could have noticed. Or the opposite - being so fidgety or restless that you have been moving around a lot more than usual: not at all 9. Thoughts that you would be better off or of hurting yourself in some way: not at all Total score: 0 Depression Screening Interpretation: Negative Depression Screening Done: Yes 82271 - PHQ-9 Billing: Yes Source: Developed by Drs. David Bokyin, Nita Romero, Nicholas Schneider and colleagues, with an educational kim from [employer]. Thrive Questionnaire Date Thrive assessed: 01/24/25 I am a: Patient What is your living situation today?: I have a steady place to live Within the past 12 months, did the food you bought not last and you didn't have the money to get more?: Never true Within the past 12 months, did you worry whether your food would run out before you got money to buy more?: Never true Do you have trouble paying for medicines?: No Do you have trouble getting transportation to medical appointments?: No Do you have trouble paying your heating and electricity bill?: No Do you have trouble taking care of your child, family member or friend?: No Do you have trouble with day-to-day activities such as bathing, preparing meals, shopping, managing finances, etc.?: I choose not to answer this question Are you currently unemployed and looking for a job?: No Are you interested in more education?: No Please select the resources that you would like help with: None Currently or been in a relationship where the following occur: No concerns reported THRIVE Score: 0 MARIANA-7 AMB Questionnaire MARIANA-7 Date MARIANA - 7 assessed: 01/24/25 Feeling nervous, anxious, or on edge: 0 = Not at all Not being able to stop or control worryin = Not at all Worrying too much about different things: 0 = Not at all Trouble relaxin = Not at all Being so restless that it is hard to sit still: 0 = Not at all Becoming easily annoyed or irritable: 0 = Not at all Feeling afraid as if something awful might happen: 0 = Not at all Total MARIANA-7 score (0-4 normal; 5-9 mild; 10-14 moderate; 15-21 severe): 0 Source: Developed by Drs. David Boykin, Nita Romero, Nicholas Schneider and colleagues, with an educational kim from [employer]. MARIANA-7 Assessment Billing MARIANA-7 Assessment Tool: MARIANA-7 Assessment 72021 Physical exam (Primary Care) Vital Signs: Last Vital Signs Temp 97.3 F 01/24/25 14:55 Pulse 76 01/24/25 14:55 Resp 12 01/24/25 14:55 BP 118/68 01/24/25 14:55 Pulse Ox 98 01/24/25 14:55 Oxygen Delivery Method Room Air 01/24/25 14:55 BMI result Body Mass Index 33.2 Tobacco/Smoking Status: Tobacco use Status Tobacco use date assessed 01/24/25 01/24/25 14:55 Patient Tobacco Use Status Never used Tobacco 01/24/25 14:55 e-Cigarette/Vaping Use Never Used 01/24/25 14:55 PHQ-9: PHQ-9 Score PHQ-9: Total score 0 01/24/25 15:53 Depression Screening Interpretation: Negative Thrive Assessment: Date of Thrive Assessment Date Thrive assessed 01/24/25 01/24/25 14:55 Currently or been in a relationship where the following occur: No concerns reported Office Procedures Diabetic Foot Exam G9226 - Diabetic Foot Exam Flu Questionnaire Does the patient have a severe egg allergy?: No Does the patient have severe life threatening allergies?: No Does the patient have a fever or illness today?: No Has the patient ever had Guillain-Spurgeon Syndrome?: No Has the patient ever had any past reaction to a flu shot?: No Comment: by Alba Auguste MA Immunizations Fluarix [id number] (PF) 45 mcg (15 mcg x 3)/0.5 mL IM syringe Performing Provider: SHEILA Bazzi Performing Location: [facility] Administered by: Fantasma Leslie RN on 01/24/25 15:53 Dose Route Admin Location Dispensed Lot Number Expiration Date [facility] Dental Financial Coordinator 0.5 mL IM Left Deltoid 0.5 mL [id number] 10/23/25 [id number] [employer] VIS Given Date VIS Provided VIS Publication Date 01/24/25 Single Vaccine 24 Eligibility Eligibility Date Funding Source Not [facility] Eligible 01/24/25 Private Administration Comments: administered by Elisabeth Auguste MA Coding Level of Care Code Est Pt Level 5 (74243) Complex EM visit Add On G2211 Diagnoses Moderate episode of recurrent major depressive disorder F33.1 Major depression episode severity: moderate Hyperlipidemia associated with type 2 diabetes mellitus E11.69; E78.5 Diabetes mellitus type 2 with complications E11.8 Type 2 diabetes mellitus with morbid obesity E11.69; E66.01 Microalbuminuria due to type 2 diabetes mellitus E11.29; R80.9 Diabetes type 2 with atherosclerosis of arteries of extremities E11.51; I70.209 Obesity (BMI 30-39.9) E66.9 Mild nonproliferative diabetic retinopathy of both eyes associated with type 2 diabetes mellitus, macular edema presence unspecified E11.3293 Diabetes mellitus type: type 2 Diabetes mellitus macular edema: macular edema presence unspecified Laterality: bilateral Neuropathy due to type 2 diabetes mellitus E11.40 Gastroesophageal reflux disease without esophagitis K21.9 Esophagitis presence: without esophagitis Influenza vaccination administered at current visit Z23 CPT Codes Diabetic Foot Exam - CPT: G9226 - Diabetic Foot Exam ([id number]) Additional Codes MARIANA-7 Assessment Billing - MARIANA-7 Assessment Tool: MARIANA-7 Assessment 90576 ([id number]) PHQ-9 - 88355 - PHQ-9 Billing: Yes ([id number]) Assessment & Plan Assessment & Plan (1) MDD (major depressive disorder), recurrent episode: Code(s): F33.9 - Major depressive disorder, recurrent, unspecified Category: Medical Qualifiers: Major depression episode severity: moderate Qualified Code(s): F33.1 - Major depressive disorder, recurrent, moderate (2) Hyperlipidemia associated with type 2 diabetes mellitus: Comment: LDL goal is less than 70 on statin Code(s): E11.69 - Type 2 diabetes mellitus with other specified complication; E78.5 - Hyperlipidemia, unspecified Category: Medical (3) Diabetes mellitus type 2 with complications: Code(s): E11.8 - Type 2 diabetes mellitus with unspecified complications Category: Medical (4) Type 2 diabetes mellitus with morbid obesity: Comment: BMI > 32.0 lifestyle modifications recommended Code(s): E11.69 - Type 2 diabetes mellitus with other specified complication; E66.01 - Morbid (severe) obesity due to excess calories Category: Medical (5) Microalbuminuria due to type 2 diabetes mellitus: Comment: Jardiance, continue repeat this in 3 months Code(s): E11.29 - Type 2 diabetes mellitus with other diabetic kidney complication; R80.9 - Proteinuria, unspecified Category: Medical (6) Diabetes type 2 with atherosclerosis of arteries of extremities: Comment: Based on physical exam. On statin. Monitor skin integrity Encouraged use of Lac-Hydrin Code(s): E11.51 - Type 2 diabetes mellitus with diabetic peripheral angiopathy without gangrene; I70.209 - Unspecified atherosclerosis of [place] arteries of extremities, unspecified extremity Category: Medical (7) Obesity (BMI 30-39.9): Code(s): E66.9 - Obesity, unspecified Category: Medical (8) Mild nonproliferative diabetic retinopathy: Comment: bilat 08/2024 [facility] Code(s): E11.3299 - Type 2 diabetes mellitus with mild nonproliferative diabetic retinopathy without macular edema, unspecified eye Category: Medical Qualifiers: Diabetes mellitus type: type 2 Diabetes mellitus macular edema: macular edema presence unspecified Laterality: bilateral Qualified Code(s): E11.3293 - Type 2 diabetes mellitus with mild nonproliferative diabetic retinopathy without macular edema, bilateral (9) Neuropathy due to type 2 diabetes mellitus: Comment: Abnormal monofilament and vibratory sensations bilat (normal today!) Continue Lac-Hydrin cream b.i.d. to help with the thickened scaling skin. Diabetic foot education provided Code(s): E11.40 - Type 2 diabetes mellitus with diabetic neuropathy, unspecified Category: Medical (10) GERD (gastroesophageal reflux disease): Code(s): K21.9 - Gastro-esophageal reflux disease without esophagitis Category: Medical Qualifiers: Esophagitis presence: without esophagitis Qualified Code(s): K21.9 - Gastro-esophageal reflux disease without esophagitis (11) Influenza vaccination administered at current visit: Code(s): Z23 - Encounter for immunization Category: Medical Plan , Orders: Orders Hemoglobin A1c 3 Months E11.29 - Type 2 diabetes mellitus with other diabetic kidney complication, E11.69 - Type 2 diabetes mellitus with other specified complication, E11.8 - Type 2 diabetes mellitus with unspecified complications, E66.01 - Morbid (severe) obesity due to excess calories, E78.5 - Hyperlipidemia, unspecified, R80.9 - Proteinuria, unspecified Lipid Panel 3 Months E11.29 - Type 2 diabetes mellitus with other diabetic kidney complication, E11.69 - Type 2 diabetes mellitus with other specified complication, E11.8 - Type 2 diabetes mellitus with unspecified complications, E66.01 - Morbid (severe) obesity due to excess calories, E78.5 - Hyperlipidemia, unspecified, R80.9 - Proteinuria, unspecified Influenza [id number] Immunization Today Z23 - Encounter for immunization Comprehensive Met. Panel 3 Months E11.29 - Type 2 diabetes mellitus with other diabetic kidney complication, E11.69 - Type 2 diabetes mellitus with other specified complication, E11.8 - Type 2 diabetes mellitus with unspecified complications, E66.01 - Morbid (severe) obesity due to excess calories, E78.5 - Hyperlipidemia, unspecified, R80.9 - Proteinuria, unspecified Microalbumin, Random (w Creat) 3 Months E11.29 - Type 2 diabetes mellitus with other diabetic kidney complication, E11.69 - Type 2 diabetes mellitus with other specified complication, E11.8 - Type 2 diabetes mellitus with unspecified complications, E66.01 - Morbid (severe) obesity due to excess calories, E78.5 - Hyperlipidemia, unspecified, R80.9 - Proteinuria, unspecified Vitamin B12 and Folate 3 Months E11.29 - Type 2 diabetes mellitus with other diabetic kidney complication, E11.69 - Type 2 diabetes mellitus with other specified complication, E11.8 - Type 2 diabetes mellitus with unspecified complications, E66.01 - Morbid (severe) obesity due to excess calories, E78.5 - Hyperlipidemia, unspecified, R80.9 - Proteinuria, unspecified Medications: New lisdexamfetamine (Vyvanse) Partial Fill upon patient request. 40 mg PO DAILY 30 caps 0RF Changed From famotidine (Pepcid) 20 mg PO BEDTIME 90 tabs 0RF To famotidine (Pepcid) 20 mg PO BID 180 tabs 2RF Refilled pravastatin 80 mg PO BEDTIME 90 tabs 0RF glyburide 5 mg PO BID 180 tabs 1RF empagliflozin (Jardiance) 25 mg PO QAM 90 tabs 1RF metformin ER 2,000 mg (4 x 500 mg) PO QPM 360 tabs 1RF 90 days sertraline 100 mg PO DAILY 90 tabs 1RF Discontinued lisdexamfetamine (Vyvanse) Partial Fill upon patient request. Discontinued Reason: Doctor's Order 30 mg PO DAILY 90 caps 0RF
[2025-01-24 14:55] VITALS: BP 118/68; PULSE 76; RESP 12; TEMP 36.3; O2SAT 98; BMI 33.2
== END 2025-01-24 15:45 | disposition home or self-care (01) ==
LOC: HO.HMCFM 14:51
PROVIDERS: PCP Nurse Practitioner Family; Visit Provider Nurse Practitioner Family
DX: E78.5 Hyperlipidemia, unspecified (principal); F33.1 Major depressive disorder, recurrent, moderate; E11.69 Type 2 diabetes mellitus with other specified complication; E66.01 Morbid (severe) obesity due to excess calories; Z68.33 Body mass index [BMI] 33.0-33.9, adult; E11.8 Type 2 diabetes mellitus with unspecified complications; E11.29 Type 2 diabetes mellitus with other diabetic kidney complication; E11.51 Type 2 diabetes mellitus with diabetic peripheral angiopathy without gangrene; E11.3293 Type 2 diabetes mellitus with mild nonproliferative diabetic retinopathy without macular edema, bilateral; E11.40 Type 2 diabetes mellitus with diabetic neuropathy, unspecified; R80.9 Proteinuria, unspecified; Z23 Encounter for immunization

== ENCOUNTER → 2025-01-24 14:50 | Outpatient (BNVA) | payer OTHER, SELFPAY | PROVIDERS: PCP Nurse Practitioner Family; Visit Provider Nurse Practitioner Family | DX: E11.40 Type 2 diabetes mellitus with diabetic neuropathy, unspecified (principal); E11.3293 Type 2 diabetes mellitus with mild nonproliferative diabetic retinopathy without macular edema, bilateral; E11.69 Type 2 diabetes mellitus with other specified complication; E11.29 Type 2 diabetes mellitus with other diabetic kidney complication; R80.9 Proteinuria, unspecified; E11.51 Type 2 diabetes mellitus with diabetic peripheral angiopathy without gangrene; E78.5 Hyperlipidemia, unspecified; E66.01 Morbid (severe) obesity due to excess calories; I10 Essential (primary) hypertension; R60.0 Localized edema; F33.1 Major depressive disorder, recurrent, moderate; I70.209 Unspecified atherosclerosis of native arteries of extremities, unspecified extremity; K21.9 Gastro-esophageal reflux disease without esophagitis; Z79.84 Long term (current) use of oral hypoglycemic drugs; Z23 Encounter for immunization | CPT/HCPCS: 90471; 90656; 96127; 99212 ==

== ENCOUNTER 2025-03-07 15:32 | Outpatient (AMB) | payer OTHER, SELFPAY ==
--- NOTE | 2025-03-07 07:41 | A.OFFPC_ITS ---
Vital Signs 03/07/25 15:57 Height 5 ft 7 in Weight 210 lb BMI 32.9 Intake Visit Reasons: telehealth 6-8 weeks fu on Vyvnase increase Intake Note: Telehealth to follow up on vyvanse. Ore Grader Required: No Allergies aripiprazole (From Abilify) Adverse Reaction (Mild, Verified 03/07/25 15:35) HEADACHES/EYE PAIB bupropion (From Wellbutrin SR) Adverse Reaction (Mild, Verified 03/07/25 15:35) Insomnia Medication List - Last Reviewed 03/07/25 by Patrick Arellano MA ammonium lactate 12% 1 appl topical BID empagliflozin (Jardiance) 25 mg PO QAM ezetimibe (Zetia) 10 mg PO DAILY famotidine (Pepcid) 20 mg PO BID glyburide 5 mg PO BID lisdexamfetamine (Vyvanse) 40 mg PO DAILY metformin ER 2,000 mg (4 x 500 mg) PO QPM 90 days pravastatin 80 mg PO BEDTIME sertraline 100 mg PO DAILY Tobacco use date assessed: 03/07/25 Dental Screening Dental Screen Date: 03/07/25 Did you have a dental visit in the last 12 months?: Yes Did you have a dental problem in the last 6 months where you did not have access to dental care?: No Was dental information given to patient?: Patient has dentist HPI HPI Comments History of Present Illness Details 59-year-old female MDD, obesity, hyperte nsion, diabetes type 2, microalbuminuria, elevated LFTs, hyperlipidemia, Herpes History of Present Illness The patient is a 59-year-old female presenting for a telehealth follow-up to discuss medication changes for depressive symptoms and gastroesophageal reflux disease (GERD). Depression and Adverse Effect of Medication: - The patient's Vyvanse dose was recentl y increased from 30 mg to 40 mg daily to manage depressive symptoms. - She was on the 40 mg dose for approxim ately 20 days, from January 27 to February 16. - During that time, she developed insomn ia, irritability, new-onset headaches, anxiety, pruritus on her forearms and face, and cognitive difficulties. - Due to these symptoms, she discontinue d the 40 mg dose on February 16, took a five-day break from the medication, and restarted the 30 mg dose on February 22. - Since restarting the 30 mg dose, she r eports feeling much better, with improved sleep, resolution of anxiety, and improved cognition, although some irritability persists. - She notes continued weight loss and cu rrently weighs 210 lbs. Gastroesophageal Reflux Disease: - The patient's Pepcid dose was increase d from 20 mg once daily to twice daily for acid reflux. - She reports that her reflux symptoms h ave been variable but are currently under control on the twice-daily regimen. - She occasionally uses supplemental ant acids for breakthrough symptoms. Review of Systems - General: Reports weight loss, currentl y at 210 lbs. - Skin: Previously experienced pruritus on her forearms and face with Vyvanse 40 mg, which has since resolved. - Neurological: Previously experienced h eadaches and difficulty concentrating with Vyvanse 40 mg, which has since resolved. - Psychiatric: Reports feeling much bett er on Vyvanse 30 mg. Previously experienced anxiety, mood lability, and irritability on the 40 mg dose. She notes that her anxiety has resolved, although some irritability persists. - Sleep: Reports sleeping better on Vyva nse 30 mg, typically four hours at a time. This is an improvement from the insomnia she experienced on the 40 mg dose. - Gastrointestinal: Reports that her aci d reflux is currently under control with twice-daily Pepcid, though she has experienced intermittent symptoms and has used regular antacids. Physical Exam - Vitals: Patient-reported weight is 210 lbs. - General: The patient was visualized vi a video and appeared to be in no acute distress. Speaking in full sentences Engaged in appropriat conversation Skin pink & warm Assessment and Plan 1. Depression and Adverse Effect of Medi cation - The patient experienced intolerable si de effects on Vyvanse 40 mg, including insomnia, anxiety, mood lability, and pruritus. These symptoms resolved upon reverting to the 30 mg dose, on which she feels significantly better. The 40 mg dose is not tolerated at this time. - Plan: Discontinue Vyvanse 40 mg. - Plan: Continue Vyvanse 30 mg once mendoza y. - Plan: A 90-day supply of Vyvanse 30 mg has been electronically prescribed to her preferred pharmacy. - Plan: The patient was counseled not to self-adjust the dose. The possibility of a future dose adjustment will be reconsidered at the next appointment. 2. Gastroesophageal Reflux Disease (GERD ) - The patient's symptoms are currently c ontrolled with famotidine 20 mg twice daily, despite some previous fluctuations. The patient wishes to continue with the current regimen. - Plan: Continue famotidine (Pepcid) 20 mg twice daily. - Plan: Defer trial of an alternative me dication, such as a proton-pump inhibitor, at this time. - Plan: Re-evaluate symptom control at t he next follow-up. 3. Follow-up - The patient will return for a follow-u p visit in April to reassess her symptoms and treatment plan. Patient was given time to ask questions. All questions were answered to their satisfaction. Telehealth Attestation This visit was conducted via a real-time, interactive audio and video telehealth platform. The patient has been explained that this is an interactive (audio/video) telehealth encounter and what that consists of. The patient understands and wishes to proceed. [employer] platform was used. Total time spent caring for the patient today was 21 minutes. This includes time spent before the visit reviewing the chart, time spent during the visit, and time spent after the visit on documentation, reviewing laboratory results, diagnostic imaging, medications, performing a medically necessary evaluation, counseling on diagnoses, care coordination, ordering appropriate tests, ordering appropriate medications, review of tests performed by other providers, reporting test results with the patient, communication with other healthcare providers. [facility] Medical History (Updated 01/24/25 @ 17:10 by [facility]) No pertinent past medical history Surgical History (Updated 06/15/23 @ 15:48 by Tatianna Jang CMA) No pertinent past surgical history Social History (Updated 06/15/23 @ 15:46 by Tatianna Jang CMA) Household Members: Other Both parents involved: No Caregiver staying overnight: No Housing: Apartment Are you a primary medicare sales executive to a significant other at home: No Do you presently have visiting nurse or other home services: No 75 years or older and lives alone: No Alcohol intake: never Patient Tobacco Use Status: Never used Tobacco e-Cigarette/Vaping Use: Never Used Second Hand Smoke Exposure: No service: No Current occupational status: unemployed Current occupational exposures/hazards: No Sexual orientation: Unable to collect Gender identity: Unable to collect Cognitive needs: No Hearing needs: No Vision needs: Yes Questionnaire Thrive Questionnaire Date Thrive assessed: 06/20/24 I am a: Patient What is your living situation today?: I have a steady place to live Within the past 12 months, did the food you bought not last and you didn't have the money to get more?: Never true Within the past 12 months, did you worry whether your food would run out before you got money to buy more?: Never true Do you have trouble paying for medicines?: No Do you have trouble getting transportation to medical appointments?: No Do you have trouble paying your heating and electricity bill?: No Do you have trouble taking care of your child, family member or friend?: No Do you have trouble with day-to-day activities such as bathing, preparing meals, shopping, managing finances, etc.?: I choose not to answer this question Are you currently unemployed and looking for a job?: No Are you interested in more education?: No Please select the resources that you would like help with: None Currently or been in a relationship where the following occur: No concerns reported THRIVE Score: 0 MARIANA-7 AMB Questionnaire MARIANA-7 Date MARIANA - 7 assessed: 01/24/25 Source: Developed by Drs. David Boykin, Nita Romero, Nicholas Schneider and colleagues, with an educational kim from [employer]. Physical exam (Primary Care) Tobacco/Smoking Status: Tobacco use Status Tobacco use date assessed 03/07/25 03/07/25 15:46 Patient Tobacco Use Status Never used Tobacco 03/07/25 07:41 e-Cigarette/Vaping Use Never Used 03/07/25 07:41 Thrive Assessment: Date of Thrive Assessment Date Thrive assessed 06/20/24 03/07/25 07:41 Currently or been in a relationship where the following occur: No concerns reported Telehealth Telehealth Telehealth Platform: [facility] Location of provider rendering services: practice address Location of patient: address on file Patient Identification confirmed using: Name, : Yes Telehealth method: video Patient verbally consented to treatment: Yes Patient verbally consented to billing insurance company: Yes Patient informed of any privacy concerns related to visit: Yes Minutes spent on Phone/Video with Pt.: 14 Coding Level of Care Code Tele Est Pt Level 3 (90212) Complex EM visit Add On G2211 Diagnoses Moderate episode of recurrent major depressive disorder F33.1 Major depression episode severity: moderate Gastroesophageal reflux disease without esophagitis K21.9 Esophagitis presence: without esophagitis Assessment & Plan Assessment & Plan (1) MDD (major depressive disorder), recurrent episode: Code(s): F33.9 - Major depressive disorder, recurrent, unspecified Category: Medical Qualifiers: Major depression episode severity: moderate Qualified Code(s): F33.1 - Major depressive disorder, recurrent, moderate (2) GERD (gastroesophageal reflux disease): Code(s): K21.9 - Gastro-esophageal reflux disease without esophagitis Category: Medical Qualifiers: Esophagitis presence: without esophagitis Qualified Code(s): K21.9 - Gastro-esophageal reflux disease without esophagitis Plan / Medications: New lisdexamfetamine (Vyvanse) Partial Fill upon patient request. 30 mg PO DAILY 90 caps 0RF Discontinued lisdexamfetamine (Vyvanse) Partial Fill upon patient request. Discontinued Reason: Doctor's Order 40 mg PO DAILY 30 caps 0RF
[2025-03-07 15:57] VITALS: BMI 32.9
== END 2025-03-07 16:03 | disposition home or self-care (01) ==
LOC: HO.HMCFM 15:33
PROVIDERS: PCP Nurse Practitioner Family; Visit Provider Nurse Practitioner Family
DX: F33.1 Major depressive disorder, recurrent, moderate (principal); K21.9 Gastro-esophageal reflux disease without esophagitis